=== PATIENT | male | born 1945 | race Caucasian/White ===

== ENCOUNTER 2016-05-24 13:22 | Emergency (ER) | payer OTHER ==
[2016-05-24] MEDS ORDERED: NITROSTAT SL PRN (13:31)
[2016-05-24 13:36] VITALS: BP 163/90; BMI 26.3
[2016-05-24] MEDS ORDERED: ASPIRIN ONE (13:38)
[2016-05-24 13:55] LABS: BASOPHILS # (AUTO) 0.1 X10^3/uL (0.0-0.1); BASOPHILS % (AUTO) 0.7 % (0.2-1.0); EOSINOPHILS # (AUTO) 0.2 x10^3/uL (0.0-0.2); EOSINOPHILS % (AUTO) 2.3 % (0.9-2.9); HEMATOCRIT 43.8 % (42.0-54.0); HEMOGLOBIN 14.8 g/dL (13.5-18.0); LYMPHOCYTES # (AUTO) 2.2 X10^3/uL (1.3-2.9); LYMPHOCYTES % (AUTO) 22.3 % (21.0-51.0); MEAN CORPUSCULAR HEMOGLOBIN 31.5 pg (27.0-34.0); MEAN CORPUSCULAR HGB CONC 33.8 g/dL (33.0-35.0); MEAN CORPUSCULAR VOLUME 93.1 fL (80.0-100.0); MEAN PLATELET VOLUME 9.7 fL (7.4-11.0); MONOCYTES # (AUTO) 0.8 x10^3/uL (0.3-0.8); MONOCYTES % (AUTO) 7.7 % (0.0-13.0); NEUTROPHILS # (AUTO) 6.7 x10^3/uL (2.2-4.8); PLATELET COUNT 227 X10^3/uL (150.0-450.0); RED BLOOD COUNT 4.71 X10^6/uL (4.7-6.0)
[2016-05-24] MEDS ORDERED: ASPIRIN PO SCH (14:00)
[2016-05-24 14:23] LABS: ALANINE AMINOTRANSFERASE 33 Units/L (12-78); ALKALINE PHOSPHATASE 83 Units/L (46-116); ASPARTATE AMINO TRANSFERASE 29 Units/L (15-37); BLOOD UREA NITROGEN 23 mg/dL (7-18); CALCIUM 8.9 mg/dL (8.5-10.1); CARBON DIOXIDE 27.5 mmol/L (21-32); CHLORIDE 106 mmol/L (98-107); CKMB % 3.4 % (<4); COR CA(FOR HYPOALB) 9.7 mg/dL (8.5-10.1); COR NA(FOR HYPERGLY) 142 mmol/L (136-145); CREATINE KINASE 80 Units/L (39-308); CREATINE KINASE MB 2.7 ng/mL (0-4.0); CREATININE 1.35 mg/dL (0.70-1.30); GLUCOSE 203 mg/dL (65-99); MAGNESIUM 1.5 mg/dL (1.7-2.9); PHOSPHORUS 3.8 mg/dL (2.6-4.7); SODIUM 140 mmol/L (136-145); TOTAL PROTEIN 7.3 g/dL (6.4-8.2); TROPONIN I 3.22 ng/mL (0-1.5); eGFR BLACK RACES > 60 (>60); eGFR NON BLACK RACES 56 (>60)
[2016-05-24] MEDS ORDERED: HEPARIN SODIUM IN D5W 25,000 UNITS/500 ML BAG IV PRN (14:35)
[2016-05-24] MEDS ORDERED: HEPARIN SODIUM IN D5W 25,000 UNITS/500 ML BAG IV ONE (14:41)
[2016-05-24] MEDS ORDERED: HEPARIN SODIUM INJ 5000 UNITS ONE (14:41)
--- NOTE | 2016-05-24 14:44 | DR.GENAD ---
HPI - PCP Primary Care Physician: RITO - Complaint/Symptoms Chief Complaint Doctors Comments: Patient admits to having shortness of breath earlier today reclieved x 3 NTG. Hd admits to stents x 3 in the past. He denies diaphoresis but did have some di Chief Complaint:: PT C/O SOB. PT STATES IT STARTED EARLIER TODAY. PT HAS TAKEN X 3 NITRO'S. PT STATES HE RECENTLY HAD A STRESS TEST DONE AND HAS BEEN WAITING TO HEAR BACK FROM HIS [employer] FOR STENT PLACEMENT. - Source History Provided: Patient - Mode of Arrival Mode of Arrival: Wheelchair - Timing Onset of Chief Complaint: 05/24/16 PMH - PMH Past Medical History: Yes Past Medical History: Diabetes, Dyslipidemia, Hypertension, [place] Past Surgical History: Yes Surgical History: CABG/Valve Surgery - Family History History of Family Medical Conditions: No - Social History Does patient currently use any type of tobacco product: Yes Have you used tobacco products in the last 12 months: Yes Type of Tobacco Use: Cigarettes Does any household member use tobacco: Yes Alcohol Use: None Do you use any recreational Drugs:: No Lives With: Alone Lives Where: Home - infectious screening In the last 2 months have you had wt loss of >10#?: NO Have you had fever, night sweats or hemotysis?: No Have you traveled outside the country in the last 6 months?: No Isolation: Standard PE - Vital Signs Vitals: Temperature 97.6 F Pulse Rate 99 Respiratory Rate 24 Blood Pressure 163/90 O2 Sat by Pulse Oximetry 90 Course - Treatment Treatment: Heparin Drip, patient had runs of V tach - Reevaluation 1st: Improved ROR - Labs Reviewed Result Diagrams: 05/24/16 13:41 05/24/16 13:41 Laboratory: WBC 10.0 X10^3/uL (3.6-10.0) 05/24/16 13:41 RBC 4.71 X10^6/uL (4.7-6.0) 05/24/16 13:41 Hgb 14.8 g/dL (13.5-18.0) 05/24/16 13:41 Hct 43.8 % (42.0-54.0) 05/24/16 13:41 MCV 93.1 fL (80.0-100.0) 05/24/16 13:41 MCH 31.5 pg (27.0-34.0) 05/24/16 13:41 MCHC 33.8 g/dL (33.0-35.0) 05/24/16 13:41 RDW 13.0 % (11.6-16.5) 05/24/16 13:41 Plt Count 227 X10^3/uL (150.0-450.0) 05/24/16 13:41 MPV 9.7 fL (7.4-11.0) 05/24/16 13:41 Neut % 67.0 % (42.0-75.0) 05/24/16 13:41 Lymph % 22.3 % (21.0-51.0) 05/24/16 13:41 [place] % 7.7 % (0.0-13.0) 05/24/16 13:41 Eos % 2.3 % (0.9-2.9) 05/24/16 13:41 Baso % 0.7 % (0.2-1.0) 05/24/16 13:41 Neut # 6.7 x10^3/uL (2.2-4.8) H 05/24/16 13:41 Lymph # 2.2 X10^3/uL (1.3-2.9) 05/24/16 13:41 [place] # 0.8 x10^3/uL (0.3-0.8) 05/24/16 13:41 Eos # 0.2 x10^3/uL (0.0-0.2) 05/24/16 13:41 Baso # 0.1 X10^3/uL (0.0-0.1) 05/24/16 13:41 Absolute Nucleated RBC 0.0 /100WBC 05/24/16 13:41 INR Target Range - 05/24/16 13:41 INR 1.04 (0.8-1.3) 05/24/16 13:41 PTT 29.5 SECONDS (22.9-36.5) 05/24/16 13:41 PTT Comment - 05/24/16 13:41 Sodium 140 mmol/L (136-145) 05/24/16 13:41 Corrected Sodium 142 mmol/L (136-145) 05/24/16 13:41 Potassium 5.1 mmol/L (3.5-5.1) 05/24/16 13:41 Chloride 106 mmol/L (98-107) 05/24/16 13:41 Carbon Dioxide 27.5 mmol/L (21-32) 05/24/16 13:41 BUN 23 mg/dL (7-18) H 05/24/16 13:41 Creatinine 1.35 mg/dL (0.70-1.30) H 05/24/16 13:41 Est GFR (MDRD) Af Amer > 60 (>60) 05/24/16 13:41 Est GFR (MDRD) Non-Af 56 (>60) L 05/24/16 13:41 Glucose 203 mg/dL (65-99) H 05/24/16 13:41 Calcium 8.9 mg/dL (8.5-10.1) 05/24/16 13:41 Corrected Calcium 9.7 mg/dL (8.5-10.1) 05/24/16 13:41 Phosphorus 3.8 mg/dL (2.6-4.7) 05/24/16 13:41 Magnesium 1.5 mg/dL (1.7-2.9) L 05/24/16 13:41 Total Bilirubin 0.50 mg/dL (0.2-1.0) 05/24/16 13:41 AST 29 Units/L (15-37) 05/24/16 13:41 ALT 33 Units/L (12-78) 05/24/16 13:41 Alkaline Phosphatase 83 Units/L (46-116) 05/24/16 13:41 Creatine Kinase 80 Units/L (39-308) 05/24/16 13:41 CK-MB (CK-2) 2.7 ng/mL (0-4.0) 05/24/16 13:41 CK/CKMB % Calc 3.4 % (<4) 05/24/16 13:41 Troponin I 3.22 ng/mL (0-1.5) H* 05/24/16 13:41 Total Protein 7.3 g/dL (6.4-8.2) 05/24/16 13:41 Albumin 3.0 g/dL (3.4-5.0) L 05/24/16 13:41 Globulin 4.3 g/dL (2.5-4.5) 05/24/16 13:41 Albumin/Globulin Ratio 0.7 Ratio (1.1-2.1) L 05/24/16 13:41 - XRAY XRAY Interpreted by: Radiologist (The cardiac silhouette appears borderline enlarged. The cardiac silhouette size may be accentuated by the AP projection. There are new hazy confluent opacities present in the right mid lung zone and at the lung bases bilaterally, which could be due to atelectasis, pneumonia or keiry.) - EKG Compared to prior EKG Dated: 05/24/16 (Talked to Dr Scruggs at [facility] who accepted patient for further evaluation and treatment) - Diagnosis Discharge Problem: Non-STEMI (non-ST elevated myocardial infarction) - Discharge Plan Condition: Stable - Follow ups/Referrals Follow ups/Referrals: JESSICA SOW [Primary Care Provider] - 3 days - Instructions
--- NOTE | 2016-05-24 14:49 | RAD ---
Examination: Chest x-ray. Clinical history: Chest pain, shortness of breath. Technique: A single portable AP view of the chest was obtained. Comparison: 04/17/2016. Findings: There are multiple sternal wires and surgical clips in the mediastinum indicating a prior CABG. Catrina tor leads are seen overlying the chest. The cardiac silhouette appears borderline enlarged. The cardiac silhouette size may be accentuated b y the AP projection. The thoracic aorta is calcified. No pneumothorax or pleural effusion is noted. There are new hazy confluent opacities present in the right mid lung zone and at the lung bases bila terally, which could be due to atelectasis, pneumonia or edema. Degenerative changes are noted in the spine. No acute osseous abnormality is noted. Impression: 1. The cardiac silhouette appears borderline enlarged. The cardiac silhouette size may be accentuate d by the AP projection. 2. There are new hazy confluent opacities present in the right mid lung zone and at the lung bases b ilaterally, which could be due to atelectasis, pneumonia or edema. Reported By:
[2016-05-24] MEDS ORDERED: HEPARIN SODIUM INJ 5000 UNITS IVP ONE (14:53)
== END 2016-05-24 15:30 | disposition short-term general hospital (02) ==
LOC: ER 13:22
DX: I22.2 Subsequent non-ST elevation (NSTEMI) myocardial infarction (principal); R06.02 Shortness of breath
CPT/HCPCS: 36415; 71010; 80053; 82550; 82553; 83735; 84100; 84484; 85025; 85610; 85730; 93005; 93010; 96365; 96374; 96375; 99284; 99285; A4222; J1644

== ENCOUNTER 2016-06-13 16:52 | Emergency (ER) | payer OTHER ==
[2016-06-13 17:01] VITALS: BP 153/95; BMI 25.8
--- NOTE | 2016-06-13 17:18 | DR.GENAD ---
HPI - PCP Primary Care Physician: BRII LOCKHART - Complaint/Symptoms Chief Complaint Doctors Comments: History as stated Lifting something heavy and DFIB went off. Patient has been advised to decrease his physician activity during this trial period of DFIB vest. Chief Complaint:: DEFIB VEST WENT OFF AT HOME. PT DID NOT FEEL IT. WAS LIFTING SOMETHING HEAVY WHEN THIS HAPPENED Self Treatment fo Chief Complaint: NONE - Source History Provided: Patient, Family Member - Mode of Arrival Mode of Arrival: Wheelchair - Timing Onset of Chief Complaint: 06/13/16 PMH - PMH Past Medical History: Yes Past Medical History: Coronary Artery Disease, [place], Ventricular Tachycardia Past Surgical History: Yes Surgical History: CABG/Valve Surgery - Family History History of Family Medical Conditions: Yes Family Medical History: Diabetes Mellitus, Cancer, Coronary Artery Disease, Hypertension - Social History Have you used tobacco products in the last 12 months: Yes Type of Tobacco Use: Cigarettes Alcohol Use: None Do you use any recreational Drugs:: No Lives With: Alone Lives Where: Home - infectious screening In the last 2 months have you had wt loss of >10#?: NO Have you had fever, night sweats or hemotysis?: No Have you traveled outside the country in the last 6 months?: No Isolation: Standard ROS - Review of Systems Constitutional: No Symptoms Reported Eyes: No Symptoms Reported ENTM: No Symptoms Reported Respiratoy: No Symptoms Reported Cardiovascular: No Symptoms Reported Gastrointestinal/Abdominal: No Symptoms Reported, See HPI Genitourinary: No Symptoms Reported Neurological: No Symptoms Reported Musculoskeletal: No Symptoms Reported Integumentary: No Symptoms Reported Hematologic/Lymphatic: No Symptoms Reported Endocrine: No Symptoms Reported Psychiatric: No Symptoms Reported All Other Systems: Reviewed and Negative PE - Vital Signs Vitals: Temperature 98.0 F Pulse Rate 94 Respiratory Rate 18 Blood Pressure 153/95 O2 Sat by Pulse Oximetry 98 - General Limitations: No Limitations General Appearance: Alert, In No Apparent Distress - Head Head Exam: Normal Inspection, Atraumatic - Eyes Eye exam: Normal Appearance, PERRL, EOMI - ENT ENT Exam: Normal Exam External Ear Exam: Normal External Inspection TM/Canal Exam: Bilateral Normal Nose Exam: Normal Nose Exam Mouth Exam: Normal Inspection Throat Exam: Normal Inspection - Neck Neck Exam: Normal Inspection, Full ROM - Chest Chest Inspection: Normal Inspection - Respiratory Respiratory Exam: Normal Lung Sounds Bilat Respiratory Exam: Bilateral Clear to Auscultation - Cardiovascular Cardiovascular Exam: Regular Rate, Normal Rhythm - Abdominal Exam Abdominal Exam: Normal Inspection Abdominal Tenderness: negative: RUQ, RLQ, LUQ, LLQ, Epigastrium, Suprapubic, Diffuse, Mild, Moderate, Severe, Other - Extremities Extremities Exam: Normal Inspection, Full ROM - Back Back Exam: Normal Inspection, Full ROM - Neurologic Neurological Exam: Alert, Oriented X3, CN II-XII Intact - Psychiatric Psychiatric Exam: Normal Affect, Normal Mood - Skin Skin Exam: Warm, Dry, Intact Course - Reevaluation 1st: Unchanged ROR - Labs Reviewed Result Diagrams: 06/13/16 17:15 06/13/16 17:15 Laboratory: WBC 7.9 X10^3/uL (3.6-10.0) 06/13/16 17:15 RBC 4.27 X10^6/uL (4.7-6.0) L 06/13/16 17:15 Hgb 13.4 g/dL (13.5-18.0) L 06/13/16 17:15 Hct 39.5 % (42.0-54.0) L 06/13/16 17:15 MCV 92.4 fL (80.0-100.0) 06/13/16 17:15 MCH 31.4 pg (27.0-34.0) 06/13/16 17:15 MCHC 34.0 g/dL (33.0-35.0) 06/13/16 17:15 RDW 13.4 % (11.6-16.5) 06/13/16 17:15 Plt Count 200 X10^3/uL (150.0-450.0) 06/13/16 17:15 MPV 9.3 fL (7.4-11.0) 06/13/16 17:15 Neut % 49.3 % (42.0-75.0) 06/13/16 17:15 Lymph % 37.0 % (21.0-51.0) 06/13/16 17:15 [place] % 8.2 % (0.0-13.0) 06/13/16 17:15 Eos % 4.6 % (0.9-2.9) H 06/13/16 17:15 Baso % 0.9 % (0.2-1.0) 06/13/16 17:15 Neut # 3.9 x10^3/uL (2.2-4.8) 06/13/16 17:15 Lymph # 2.9 X10^3/uL (1.3-2.9) 06/13/16 17:15 [place] # 0.6 x10^3/uL (0.3-0.8) 06/13/16 17:15 Eos # 0.4 x10^3/uL (0.0-0.2) H 06/13/16 17:15 Baso # 0.1 X10^3/uL (0.0-0.1) 06/13/16 17:15 Absolute Nucleated RBC 0.0 /100WBC 06/13/16 17:15 Sodium 141 mmol/L (136-145) 06/13/16 17:15 Corrected Sodium 144 mmol/L (136-145) 06/13/16 17:15 Potassium 4.9 mmol/L (3.5-5.1) 06/13/16 17:15 Chloride 105 mmol/L (98-107) 06/13/16 17:15 Carbon Dioxide 28.5 mmol/L (21-32) 06/13/16 17:15 BUN 18 mg/dL (7-18) 06/13/16 17:15 Creatinine 1.30 mg/dL (0.70-1.30) 06/13/16 17:15 Est GFR (MDRD) Af Amer > 60 (>60) 06/13/16 17:15 Est GFR (MDRD) Non-Af 58 (>60) L 06/13/16 17:15 Glucose 213 mg/dL (65-99) H 06/13/16 17:15 Calcium 9.2 mg/dL (8.5-10.1) 06/13/16 17:15 Corrected Calcium TNP 06/13/16 17:15 Phosphorus 3.2 mg/dL (2.6-4.7) 06/13/16 17:15 Magnesium 1.6 mg/dL (1.7-2.9) L 06/13/16 17:15 Total Bilirubin 0.30 mg/dL (0.2-1.0) 06/13/16 17:15 AST 14 Units/L (15-37) L 06/13/16 17:15 ALT 19 Units/L (12-78) 06/13/16 17:15 Alkaline Phosphatase 80 Units/L (46-116) 06/13/16 17:15 Creatine Kinase 45 Units/L (39-308) 06/13/16 17:15 CK-MB (CK-2) 1.6 ng/mL (0-4.0) 06/13/16 17:15 CK/CKMB % Calc 3.6 % (<4) 06/13/16 17:15 Troponin I 0.07 ng/mL (0-1.5) 06/13/16 17:15 Total Protein 7.5 g/dL (6.4-8.2) 06/13/16 17:15 Albumin 3.7 g/dL (3.4-5.0) 06/13/16 17:15 Globulin 3.8 g/dL (2.5-4.5) 06/13/16 17:15 Albumin/Globulin Ratio 1.0 Ratio (1.1-2.1) L 06/13/16 17:15 - XRAY XRAY Interpreted by: Radiologist (No acute cardiopulmonary disease) - Diagnosis Discharge Problem: Defibrillator discharge - Discharge Plan Condition: Stable - Follow ups/Referrals Follow ups/Referrals: JESSICA SOW [Primary Care Provider] - 3 days - Instructions
[2016-06-13 17:28] LABS: BASOPHILS # (AUTO) 0.1 X10^3/uL (0.0-0.1); BASOPHILS % (AUTO) 0.9 % (0.2-1.0); EOSINOPHILS # (AUTO) 0.4 x10^3/uL (0.0-0.2); EOSINOPHILS % (AUTO) 4.6 % (0.9-2.9); HEMATOCRIT 39.5 % (42.0-54.0); HEMOGLOBIN 13.4 g/dL (13.5-18.0); LYMPHOCYTES # (AUTO) 2.9 X10^3/uL (1.3-2.9); MEAN CORPUSCULAR HEMOGLOBIN 31.4 pg (27.0-34.0); MEAN CORPUSCULAR VOLUME 92.4 fL (80.0-100.0); MEAN PLATELET VOLUME 9.3 fL (7.4-11.0); MONOCYTES # (AUTO) 0.6 x10^3/uL (0.3-0.8); MONOCYTES % (AUTO) 8.2 % (0.0-13.0); NEUTROPHILS # (AUTO) 3.9 x10^3/uL (2.2-4.8); NEUTROPHILS % (AUTO) 49.3 % (42.0-75.0); PLATELET COUNT 200 X10^3/uL (150.0-450.0); RED BLOOD COUNT 4.27 X10^6/uL (4.7-6.0); RED CELL DISTRIBUTION WIDTH 13.4 % (11.6-16.5); WHITE BLOOD COUNT 7.9 X10^3/uL (3.6-10.0)
[2016-06-13 17:50] LABS: BLOOD UREA NITROGEN 18 mg/dL (7-18); CALCIUM 9.2 mg/dL (8.5-10.1); CARBON DIOXIDE 28.5 mmol/L (21-32); CHLORIDE 105 mmol/L (98-107); COR NA(FOR HYPERGLY) 144 mmol/L (136-145); GLUCOSE 213 mg/dL (65-99); SODIUM 141 mmol/L (136-145); TROPONIN I 0.07 ng/mL (0-1.5); eGFR BLACK RACES > 60 (>60); eGFR NON BLACK RACES 58 (>60)
[2016-06-13 17:55] LABS: ALANINE AMINOTRANSFERASE 19 Units/L (12-78); ALBUMIN 3.7 g/dL (3.4-5.0); ALKALINE PHOSPHATASE 80 Units/L (46-116); ASPARTATE AMINO TRANSFERASE 14 Units/L (15-37); CKMB % 3.6 % (<4); CREATINE KINASE 45 Units/L (39-308); CREATINE KINASE MB 1.6 ng/mL (0-4.0); MAGNESIUM 1.6 mg/dL (1.7-2.9); PHOSPHORUS 3.2 mg/dL (2.6-4.7); TOTAL PROTEIN 7.5 g/dL (6.4-8.2)
--- NOTE | 2016-06-13 17:56 | RAD ---
HISTORY: Defibrillator went off Study: Portable chest Comparison: May 24, 2016 Findings: The trachea is midline. The cardiac silhouette is normal status post old coronary artery bypass gra fting surgery.. The lungs are clear without focal infiltrate or effusion. The bony thorax is unrem arkable. IMPRESSION: 1. No acute cardiopulmonary disease. Reported By:
[2016-06-13] MEDS ORDERED: NS 1000 ML 1,000 ML IV SCH (18:00)
== END 2016-06-13 18:35 | disposition home or self-care (01) ==
LOC: ER 17:21
DX: Z95.810 Presence of automatic (implantable) cardiac defibrillator (principal)
CPT/HCPCS: 36415; 71010; 80053; 82550; 82553; 83735; 84100; 84484; 85025; 93005; 99283

== ENCOUNTER → 2017-02-10 | Outpatient (CLI) | payer OTHER ==
[2017-02-10 07:31] LABS: BASOPHILS # (AUTO) 0.1 X10^3/uL (0.0-0.1); BASOPHILS % (AUTO) 0.8 % (0.2-1.0); EOSINOPHILS # (AUTO) 0.3 x10^3/uL (0.0-0.2); EOSINOPHILS % (AUTO) 3.8 % (0.9-2.9); HEMATOCRIT 44.2 % (42.0-54.0); HEMOGLOBIN 15.3 g/dL (13.5-18.0); LYMPHOCYTES # (AUTO) 2.2 X10^3/uL (1.3-2.9); MEAN CORPUSCULAR HEMOGLOBIN 32.9 pg (27.0-34.0); MEAN CORPUSCULAR HGB CONC 34.7 g/dL (33.0-35.0); MEAN CORPUSCULAR VOLUME 94.7 fL (80.0-100.0); MEAN PLATELET VOLUME 8.8 fL (7.4-11.0); MONOCYTES # (AUTO) 0.7 x10^3/uL (0.3-0.8); MONOCYTES % (AUTO) 9.1 % (0.0-13.0); NEUTROPHILS # (AUTO) 4.8 x10^3/uL (2.2-4.8); NEUTROPHILS % (AUTO) 59.3 % (42.0-75.0); PLATELET COUNT 196 X10^3/uL (150.0-450.0); RED BLOOD COUNT 4.67 X10^6/uL (4.7-6.0); RED CELL DISTRIBUTION WIDTH 13.1 % (11.6-16.5); WHITE BLOOD COUNT 8.1 X10^3/uL (3.6-10.0)
[2017-02-10 07:53] LABS: ALANINE AMINOTRANSFERASE 18 Units/L (12-78); ALBUMIN 3.8 g/dL (3.4-5.0); ALKALINE PHOSPHATASE 77 Units/L (46-116); ASPARTATE AMINO TRANSFERASE 14 Units/L (15-37); BLOOD UREA NITROGEN 15 mg/dL (7-18); CALCIUM 8.7 mg/dL (8.5-10.1); CHLORIDE 105 mmol/L (98-107); CHOL/HDL RATIO 3.5 (0.0-5.0); CHOLESTEROL 142 mg/dL (0-200); COR NA(FOR HYPERGLY) 142 mmol/L (136-145); HDL CHOLESTEROL 41 mg/dL (40-60); SODIUM 140 mmol/L (136-145); TOTAL PROTEIN 7.4 g/dL (6.4-8.2); TRIGLYCERIDES 83 mg/dL (0-150); eGFR BLACK RACES > 60 (>60); eGFR NON BLACK RACES > 60 (>60)
[2017-02-10 10:43] LABS: TOTAL PSA 0.72 ng/mL (0.13-4.0)
[2017-02-10 10:46] LABS: HEMOGLOBIN A1C 8.2 % (4.5-6.2)
== END ==
LOC: LAB 07:05
PROVIDERS: ATTEND Internal Medicine Clinical Cardiac Electrophysiology
DX: I25.5 Ischemic cardiomyopathy (principal); I10 Essential (primary) hypertension; R35.8 Other polyuria; E11.8 Type 2 diabetes mellitus with unspecified complications
CPT/HCPCS: 36415; 80048; 80061; 80076; 83036; 84153; 85025

== ENCOUNTER → 2017-05-14 | Outpatient (CLI) | payer OTHER ==
[2017-05-14 07:48] LABS: BASOPHILS # (AUTO) 0.1 X10^3/uL (0.0-0.1); BASOPHILS % (AUTO) 0.8 % (0.2-1.0); EOSINOPHILS # (AUTO) 0.3 x10^3/uL (0.0-0.2); EOSINOPHILS % (AUTO) 3.6 % (0.9-2.9); HEMOGLOBIN 15.5 g/dL (13.5-18.0); LYMPHOCYTES # (AUTO) 2.2 X10^3/uL (1.3-2.9); LYMPHOCYTES % (AUTO) 29.9 % (21.0-51.0); MEAN CORPUSCULAR HEMOGLOBIN 32.5 pg (27.0-34.0); MEAN CORPUSCULAR HGB CONC 34.6 g/dL (33.0-35.0); MEAN CORPUSCULAR VOLUME 94.1 fL (80.0-100.0); MEAN PLATELET VOLUME 9.5 fL (7.4-11.0); MONOCYTES # (AUTO) 0.7 x10^3/uL (0.3-0.8); NEUTROPHILS # (AUTO) 4.2 x10^3/uL (2.2-4.8); NEUTROPHILS % (AUTO) 56.7 % (42.0-75.0); PLATELET COUNT 188 X10^3/uL (150.0-450.0); RED BLOOD COUNT 4.78 X10^6/uL (4.7-6.0); RED CELL DISTRIBUTION WIDTH 13.3 % (11.6-16.5); WHITE BLOOD COUNT 7.4 X10^3/uL (3.6-10.0)
[2017-05-14 07:55] LABS: HEMOGLOBIN A1C 7.7 %
[2017-05-14 07:56] LABS: ALANINE AMINOTRANSFERASE 20 Units/L (12-78); ALKALINE PHOSPHATASE 88 Units/L (46-116); ASPARTATE AMINO TRANSFERASE 20 Units/L (15-37); BLOOD UREA NITROGEN 18 mg/dL (7-18); CALCIUM 8.8 mg/dL (8.5-10.1); CARBON DIOXIDE 27.4 mmol/L (21-32); CHLORIDE 104 mmol/L (98-107); CHOL/HDL RATIO 3.7 (0.0-5.0); CHOLESTEROL 158 mg/dL (0-200); COR NA(FOR HYPERGLY) 142 mmol/L (136-145); CREATININE 1.27 mg/dL (0.70-1.30); HDL CHOLESTEROL 43 mg/dL (40-60); SODIUM 141 mmol/L (136-145); TOTAL PROTEIN 7.7 g/dL (6.4-8.2); TRIGLYCERIDES 79 mg/dL (0-150); eGFR BLACK RACES > 60 (>60); eGFR NON BLACK RACES 60 (>60)
[2017-05-14 08:17] LABS: TOTAL PSA 1.15 ng/mL (0.13-4.0)
[2017-05-14 08:26] LABS: CREATININE,URINE 100.24 mg/dL (40-278); MICROALBUMIN,URINE 84.3 mg/L
== END ==
LOC: LAB 06:59
PROVIDERS: ATTEND Nurse Practitioner Family
DX: I10 Essential (primary) hypertension (principal); R35.8 Other polyuria; E78.4 Other hyperlipidemia; E11.65 Type 2 diabetes mellitus with hyperglycemia; R39.12 Poor urinary stream
CPT/HCPCS: 36415; 80053; 80061; 82043; 83036; 84153; 85025

== ENCOUNTER 2021-02-18 14:08 | Observation (INO) ==
[2021-02-18] MEDS ORDERED: NS 1,000 ML IV 1,000 ML ONE ×2 (14:23→18:07)
[2021-02-18] MEDS ORDERED: ZOFRAN INJ 4 MG VIAL ONE ×2 (14:23→17:11)
--- NOTE | 2021-02-18 14:24 | DR.GENAD ---
HPI Time Seen Time Seen by Provider: 02/18/21 14:24 PCP Primary Care Physician: [facility] Complaint/Symptoms Chief Complaint:: PT REPORTS THAT HAS HAD A < APPETTITE FOR WEEKS , BR PTS FAMILY REPORTS HIM EATING A SMALL BREAKFAST THAN NOTHING ELSE ,BR PT REPORTS A SMALL AMOUNT OF ABD PAIN , AND PT STATES " HE DOES NOT HAVE AN APPETITE,BR PT HAS BEEN HAVING N/V ONCE EVERY 3 -4 DAYS ,,BR Self Treatment fo Chief Complaint: NONE - COVID-19 Coronavirus risk:travel/contact w/high risk person: No Has patient experienced Coronavirus symptoms: No Source History Provided: Patient and Family Member Mode of Arrival Mode of Arrival: Wheelchair Timing Onset of Chief Complaint: 01/22/21 PMH PMH Past Medical History: Yes Past Medical History: Diabetes, Dyslipidemia, Hypertension and [place] Past Surgical History: Yes Surgical History: Abdominal Surgery, Angioplasty/Stents and CABG/Valve Surgery Family History History of Family Medical Conditions: Yes Family Medical History: Diabetes Mellitus and Hypertension Social History Does patient currently use any type of tobacco product: No Have you used tobacco products in the last 12 months: No Type of Tobacco Use: None Does any household member use tobacco: No Alcohol Use: None Do you use any recreational Drugs:: No Lives With: Family Lives Where: Home Travel Risk Coronavirus risk:travel/contact w/high risk person: No Has patient experienced Coronavirus symptoms: No Infectious screening In the last 2 months have you had wt loss of >10#?: NO Have you had fever, night sweats or hemotysis?: No Have you traveled outside the country in the last 6 months?: No Isolation: Standard PE Vital Signs Vitals: Pulse Rate 92 Respiratory Rate 23 Blood Pressure [Left Arm] 140/70 Blood Pressure 189/91 O2 Sat by Pulse Oximetry 100 ROR Labs Reviewed Result Diagrams: 02/18/21 14:30 02/18/21 14:30 Laboratory: WBC 10.4 X10^3/uL (3.6-10.0) H 02/18/21 14:30 RBC 3.80 X10^6/uL (4.7-6.0) L 02/18/21 14:30 Hgb 12.1 g/dL (13.5-18.0) L 02/18/21 14:30 Hct 35.3 % (42.0-54.0) L 02/18/21 14:30 MCV 92.9 fL (80.0-100.0) 02/18/21 14:30 MCH 31.8 pg (27.0-34.0) 02/18/21 14:30 MCHC 34.3 g/dL (33.0-35.0) 02/18/21 14:30 RDW 13.3 % (11.6-16.5) 02/18/21 14:30 Plt Count 400 X10^3/uL (150.0-450.0) 02/18/21 14:30 MPV 8.3 fL (7.4-11.0) 02/18/21 14:30 Neut % (Auto) 66.1 % (42.0-75.0) 02/18/21 14:30 Lymph % (Auto) 21.5 % (21.0-51.0) 02/18/21 14:30 [place] % (Auto) 9.9 % (0.0-13.0) 02/18/21 14:30 Eos % (Auto) 1.9 % (0.9-2.9) 02/18/21 14:30 Baso % (Auto) 0.6 % (0.2-1.0) 02/18/21 14:30 Neut # (Auto) 6.9 x10^3/uL (2.2-4.8) H 02/18/21 14:30 Lymph # (Auto) 2.2 X10^3/uL (1.3-2.9) 02/18/21 14:30 [place] # (Auto) 1.0 x10^3/uL (0.3-0.8) H 02/18/21 14:30 Eos # (Auto) 0.2 x10^3/uL (0.0-0.2) 02/18/21 14:30 Baso # (Auto) 0.1 X10^3/uL (0.0-0.1) 02/18/21 14:30 Absolute Nucleated RBC 0.1 /100WBC 02/18/21 14:30 Sodium 138 mmol/L (136-145) 02/18/21 14:30 Corrected Sodium 143 mmol/L (136-145) 02/18/21 14:30 Potassium 4.3 mmol/L (3.5-5.1) 02/18/21 14:30 Chloride 99 mmol/L (98-107) 02/18/21 14:30 Carbon Dioxide 31.7 mmol/L (21-32) 02/18/21 14:30 BUN 19 mg/dL (7-18) H 02/18/21 14:30 Creatinine 1.41 mg/dL (0.70-1.30) H 02/18/21 14:30 Est GFR (MDRD) Af Amer > 60 (>60) 02/18/21 14:30 Est GFR (MDRD) Non-Af 52 (>60) L 02/18/21 14:30 Glucose 302 mg/dL (65-99) H 02/18/21 14:30 Calcium 9.1 mg/dL (8.5-10.1) 02/18/21 14:30 Corrected Calcium 9.7 mg/dL (8.5-10.1) 02/18/21 14:30 Total Bilirubin 0.30 mg/dL (0.2-1.0) 02/18/21 14:30 AST 15 Units/L (15-37) 02/18/21 14:30 ALT 17 Units/L (12-78) 02/18/21 14:30 Alkaline Phosphatase 95 Units/L (46-116) 02/18/21 14:30 Creatine Kinase 24 Units/L (39-308) L 02/18/21 14:30 CK-MB (CK-2) < 1.0 ng/mL (0-4.0) 02/18/21 14:30 CK/CKMB % Calc 4.2 % (<4) 02/18/21 14:30 Troponin I < 0.02 ng/mL (0-1.5) 02/18/21 14:30 Total Protein 7.5 g/dL (6.4-8.2) 02/18/21 14:30 Albumin 3.2 g/dL (3.4-5.0) L 02/18/21 14:30 Globulin 4.3 g/dL (2.5-4.5) 02/18/21 14:30 Albumin/Globulin Ratio 0.7 Ratio (1.1-2.1) L 02/18/21 14:30 Amylase 78 Units/L (25-115) 02/18/21 14:30 Lipase 376 Units/L (73-393) 02/18/21 14:30 SARS CoV-2 RNA Rapid PAIGE Negative (NEGATIVE) 02/18/21 16:40 Opioid Opioid Risk Tool Age (Markos box if 16-45): No History of Preadolescent Sexual Abuse: No Total: 0 Total Score Risk Category: Low Risk Copyright: Garry LINARES predicting aberrant behaviors
[2021-02-18] MEDS ORDERED: ZOFRAN INJ 4 MG VIAL IVP ONE ×2 (14:34→17:16)
[2021-02-18] MEDS ORDERED: NS 1,000 ML IV 1,000 ML IV ONE (14:34)
[2021-02-18 15:02] LABS: BASOPHILS # (AUTO) 0.1 X10^3/uL (0.0-0.1); BASOPHILS % (AUTO) 0.6 % (0.2-1.0); EOSINOPHILS # (AUTO) 0.2 x10^3/uL (0.0-0.2); EOSINOPHILS % (AUTO) 1.9 % (0.9-2.9); HEMATOCRIT 35.3 % (42.0-54.0); HEMOGLOBIN 12.1 g/dL (13.5-18.0); LYMPHOCYTES # (AUTO) 2.2 X10^3/uL (1.3-2.9); LYMPHOCYTES % (AUTO) 21.5 % (21.0-51.0); MEAN CORPUSCULAR HEMOGLOBIN 31.8 pg (27.0-34.0); MEAN CORPUSCULAR HGB CONC 34.3 g/dL (33.0-35.0); MEAN CORPUSCULAR VOLUME 92.9 fL (80.0-100.0); MEAN PLATELET VOLUME 8.3 fL (7.4-11.0); MONOCYTES % (AUTO) 9.9 % (0.0-13.0); NEUTROPHILS # (AUTO) 6.9 x10^3/uL (2.2-4.8); NEUTROPHILS % (AUTO) 66.1 % (42.0-75.0); PLATELET COUNT 400 X10^3/uL (150.0-450.0); RED CELL DISTRIBUTION WIDTH 13.3 % (11.6-16.5); WHITE BLOOD COUNT 10.4 X10^3/uL (3.6-10.0)
[2021-02-18 15:17] LABS: ALANINE AMINOTRANSFERASE 17 Units/L (12-78); ALBUMIN 3.2 g/dL (3.4-5.0); ALKALINE PHOSPHATASE 95 Units/L (46-116); ASPARTATE AMINO TRANSFERASE 15 Units/L (15-37); BLOOD UREA NITROGEN 19 mg/dL (7-18); CALCIUM 9.1 mg/dL (8.5-10.1); CARBON DIOXIDE 31.7 mmol/L (21-32); CHLORIDE 99 mmol/L (98-107); CKMB % 4.2 % (<4); COR CA(FOR HYPOALB) 9.7 mg/dL (8.5-10.1); COR NA(FOR HYPERGLY) 143 mmol/L (136-145); CREATINE KINASE 24 Units/L (39-308); CREATINE KINASE MB < 1.0 ng/mL (0-4.0); CREATININE 1.41 mg/dL (0.70-1.30); SODIUM 138 mmol/L (136-145); TOTAL PROTEIN 7.5 g/dL (6.4-8.2); TROPONIN I < 0.02 ng/mL (0-1.5); eGFR NON BLACK RACES 52 (>60)
--- NOTE | 2021-02-18 15:30 | RAD ---
HISTORYABDOMINAL PAIN, VOMITING HTN, AR, DM, DYSLIPIDEMIA SX: ABDOMINAL, ANGIOPLASTY, CABGSTUDYACUTE ABDOMEN SERIESCOMPARISONChest film dated February 12, 2021.FINDINGSThe trachea is midline. The cardiac silhouette is [borderline enlarged but stable. There are sternotomy wires surgical clips and pacemaker in place.]. [The lungs are clear without focal mass or consolidation. There is no effusion or pneumothorax.] [The bony thorax is unremarkable].Flat plate and upright evaluation of the abdomen demonstrates a [normal bowel gas pattern]. No bowel distention or abnormal air collections are observed. An endovascular stent is seen within an abdominal aortic aneurysm. There is no pneumoperitoneum. No pathological soft tissue mass or calcification can be observed. The bony structures are grossly intact.IMPRESSION1. [No acute cardiopulmonary disease.]2. [No evidence for acute abdominal pathology identified.]Electronically signed by: TASHI BRADFORD (Feb 18, 2021 15:28:59)
[2021-02-18 15:38] LABS: AMYLASE 78 Units/L (25-115); LIPASE 376 Units/L (73-393)
[2021-02-18] MEDS ORDERED: NORMODYNE INJ 20 MG VIAL ONE (17:07)
[2021-02-18] MEDS ORDERED: LABETALOL HCL IVP ONE (17:16)
[2021-02-18] MEDS ORDERED: ZOFRAN INJ 4 MG VIAL IVP PRN (18:00)
[2021-02-18] MEDS ORDERED: PEPCID 20 MG IV PREMIX* 20 MG/50 ML BAG IV PRN (18:00)
[2021-02-18] MEDS: NS 1,000 ML IV 1,000 ML IV SCH (18:23)
[2021-02-18 18:42] VITALS: BMI 25.7
[2021-02-18] MEDS: SNACK - Diabetic Appropriate PO SCH (20:42)
[2021-02-18] MEDS: LIPITOR TAB 20 MG PO SCH (21:18)
[2021-02-18] MEDS: ASPIRIN EC 81 MG PO SCH (21:18)
[2021-02-19 03:55] LABS: BASOPHILS # (AUTO) 0.1 X10^3/uL (0.0-0.1); BASOPHILS % (AUTO) 1.2 % (0.2-1.0); EOSINOPHILS # (AUTO) 0.2 x10^3/uL (0.0-0.2); EOSINOPHILS % (AUTO) 2.6 % (0.9-2.9); HEMATOCRIT 29.5 % (42.0-54.0); HEMOGLOBIN 10.4 g/dL (13.5-18.0); LYMPHOCYTES # (AUTO) 2.4 X10^3/uL (1.3-2.9); LYMPHOCYTES % (AUTO) 30.5 % (21.0-51.0); MEAN CORPUSCULAR HEMOGLOBIN 32.5 pg (27.0-34.0); MEAN CORPUSCULAR HGB CONC 35.3 g/dL (33.0-35.0); MEAN CORPUSCULAR VOLUME 91.9 fL (80.0-100.0); MEAN PLATELET VOLUME 7.9 fL (7.4-11.0); MONOCYTES # (AUTO) 0.8 x10^3/uL (0.3-0.8); MONOCYTES % (AUTO) 10.6 % (0.0-13.0); NEUTROPHILS # (AUTO) 4.3 x10^3/uL (2.2-4.8); NEUTROPHILS % (AUTO) 55.1 % (42.0-75.0); PLATELET COUNT 324 X10^3/uL (150.0-450.0); RED BLOOD COUNT 3.22 X10^6/uL (4.7-6.0); RED CELL DISTRIBUTION WIDTH 12.8 % (11.6-16.5); WHITE BLOOD COUNT 7.9 X10^3/uL (3.6-10.0)
[2021-02-19 03:57] LABS: BLOOD UREA NITROGEN 17 mg/dL (7-18); CARBON DIOXIDE 30.4 mmol/L (21-32); CHLORIDE 104 mmol/L (98-107); SODIUM 141 mmol/L (136-145); eGFR NON BLACK RACES > 60 (>60)
[2021-02-19 03:58] LABS: ALANINE AMINOTRANSFERASE 13 Units/L (12-78); ALBUMIN 2.5 g/dL (3.4-5.0); ALKALINE PHOSPHATASE 77 Units/L (46-116); AMYLASE 33 Units/L (25-115); ASPARTATE AMINO TRANSFERASE 10 Units/L (15-37); CALCIUM 8.4 mg/dL (8.5-10.1); COR CA(FOR HYPOALB) 9.6 mg/dL (8.5-10.1); COR NA(FOR HYPERGLY) 142 mmol/L (136-145); LIPASE 94 Units/L (73-393)
[2021-02-19 04:13] LABS: BILIRUBIN,URINE NEGATIVE (NEGATIVE); BLOOD/HEMOGLOBIN,URINE NEGATIVE (NEGATIVE); GLUCOSE, URINE 2+ (NEGATIVE); KETONES,URINE NEGATIVE (NEGATIVE); LEUKOCYTE ESTERASE ,URINE NEGATIVE (NEGATIVE); NITRITES,URINE NEGATIVE (NEGATIVE); PH,URINE 6.5 (5.0 - 8.0); PROTEIN,URINE 1+ (NEGATIVE); UROBILINOGEN,URINE 1+ (NORMAL)
[2021-02-19 04:26] LABS: APPEARANCE,URINE CLEAR (CLEAR); BACTERIA,URINE TRACE /HPF (NEGATIVE); COLOR,URINE YELLOW (YELLOW); RBC,URINE 0-2 /HPF (0-3); SQUAMOUS EPITHELIAL CELL,UR RARE /HPF (NEGATIVE)
[2021-02-19] MEDS: NS 1,000 ML IV 1,000 ML IV SCH ×4 (05:27→18:25)
[2021-02-19] MEDS ORDERED: NS 1,000 ML IV 1,000 ML ONE (07:50)
[2021-02-19] MEDS ORDERED: COZAAR PO SCH (09:00)
[2021-02-19] MEDS ORDERED: CITROMA PO ONE (09:07)
[2021-02-19] MEDS: AMARYL TAB 4 MG PO SCH (09:08)
[2021-02-19] MEDS: ZESTRIL TAB 5 MG PO SCH (09:09)
[2021-02-19] MEDS ORDERED: CITROMA ONE (09:10)
[2021-02-19] MEDS ORDERED: PROTONIX INJ 40 MG VIAL ONE (11:47)
[2021-02-19] MEDS: PROTONIX INJ 40 MG VIAL IVP SCH (11:51)
--- NOTE | 2021-02-19 12:27 | US ---
HISTORYReason For StudySTUDYGALL BLADDERCOMPARISONCT abdomen and pelvis without contrast from 01/1921.TECHNIQUERight upper quadrant sonogram.FINDINGSThe liver appears normal in echogenicity and echotexture and measures up to 14.8 x 12 x 12.5 cm in the right lobe. Portal vein has hepatopetal flow. Hepatic artery and veins are patent. There are multiple cholelithiasis with wall echo shadow sign. Borderline gallbladder wall at just under 3 mm. Common duct is normal at at 3 mm. The right kidney measures 9.4 x 5.1 x 4.3 cm. No obvious renal mass, stone or hydronephrosis. IVC measures normal proximally. Visualized pancreas appears benign.IMPRESSIONMultiple cholelithiasis with wall echo shadow sign. Borderline gallbladder wall thickening. Indeterminate for acute cholecystitis. Consider HIDA scan for further evaluation as clinically warranted.Electronically signed by: Ge Shelby (Feb 19, 2021 12:25:46)
--- NOTE | 2021-02-19 18:21 | DR.H&P ---
H&P History & Physical for Day of: H&P Date: 02/18/21 Chief Complaint Chief Complaint: N/V with abdominal postprandial Allergies Allergies Allergy/AdvReac Type Severity Reaction Status Date / Time No Known Drug Allergies Allergy Verified 02/18/21 14:27 History of Present Illness History of Present Illness: This is a 75 yo wm who presented to ED with a 34- day history of N/V and abdominal pain. He also reports decreased appetite and decreased BM's recently as well. Past Medical History Past Medical History: Diabetes, Dyslipidemia, Hypertension and [place] Past Surgical History Surgical History: Angioplasty/Stents and CABG/Valve Surgery Family History Family Medical History: Diabetes Mellitus and Hypertension Social History Does patient currently use any type of tobacco product: No Have you used tobacco products in the last 12 months: No Type of Tobacco Use: None Does any household member use tobacco: No Alcohol Use: None Drug Use: None Medications Home Medications: No Known Drug Allergies Allergy (Verified 02/18/21 14:27) CONTINUE taking the following medications lisinopril 2.5 mg PO DAILY 02/18/21 [History] Labs Result Diagrams: 02/19/21 03:35 02/19/21 03:35 Labs: Laboratory WBC 7.9 X10^3/uL (3.6-10.0) 02/19/21 03:35 RBC 3.22 X10^6/uL (4.7-6.0) L 02/19/21 03:35 Hgb 10.4 g/dL (13.5-18.0) L 02/19/21 03:35 Hct 29.5 % (42.0-54.0) L 02/19/21 03:35 MCV 91.9 fL (80.0-100.0) 02/19/21 03:35 MCH 32.5 pg (27.0-34.0) 02/19/21 03:35 MCHC 35.3 g/dL (33.0-35.0) H 02/19/21 03:35 RDW 12.8 % (11.6-16.5) 02/19/21 03:35 Plt Count 324 X10^3/uL (150.0-450.0) 02/19/21 03:35 MPV 7.9 fL (7.4-11.0) 02/19/21 03:35 Neut % (Auto) 55.1 % (42.0-75.0) 02/19/21 03:35 Lymph % (Auto) 30.5 % (21.0-51.0) 02/19/21 03:35 [place] % (Auto) 10.6 % (0.0-13.0) 02/19/21 03:35 Eos % (Auto) 2.6 % (0.9-2.9) 02/19/21 03:35 Baso % (Auto) 1.2 % (0.2-1.0) H 02/19/21 03:35 Neut # (Auto) 4.3 x10^3/uL (2.2-4.8) 02/19/21 03:35 Lymph # (Auto) 2.4 X10^3/uL (1.3-2.9) 02/19/21 03:35 [place] # (Auto) 0.8 x10^3/uL (0.3-0.8) 02/19/21 03:35 Eos # (Auto) 0.2 x10^3/uL (0.0-0.2) 02/19/21 03:35 Baso # (Auto) 0.1 X10^3/uL (0.0-0.1) 02/19/21 03:35 Absolute Nucleated RBC 0.0 /100WBC 02/19/21 03:35 Sodium 141 mmol/L (136-145) 02/19/21 03:35 Corrected Sodium 142 mmol/L (136-145) 02/19/21 03:35 Potassium 4.0 mmol/L (3.5-5.1) 02/19/21 03:35 Chloride 104 mmol/L (98-107) 02/19/21 03:35 Carbon Dioxide 30.4 mmol/L (21-32) 02/19/21 03:35 BUN 17 mg/dL (7-18) 02/19/21 03:35 Creatinine 1.10 mg/dL (0.70-1.30) 02/19/21 03:35 Est GFR (MDRD) Af Amer > 60 (>60) 02/19/21 03:35 Est GFR (MDRD) Non-Af > 60 (>60) 02/19/21 03:35 Glucose 140 mg/dL (65-99) H 02/19/21 03:35 POC Glucose (mg/dL) 96 mg/dL (65-99) 02/19/21 15:52 Calcium 8.4 mg/dL (8.5-10.1) L 02/19/21 03:35 Corrected Calcium 9.6 mg/dL (8.5-10.1) 02/19/21 03:35 Total Bilirubin 0.30 mg/dL (0.2-1.0) 02/19/21 03:35 AST 10 Units/L (15-37) L 02/19/21 03:35 ALT 13 Units/L (12-78) 02/19/21 03:35 Alkaline Phosphatase 77 Units/L (46-116) 02/19/21 03:35 Creatine Kinase 24 Units/L (39-308) L 02/18/21 14:30 CK-MB (CK-2) < 1.0 ng/mL (0-4.0) 02/18/21 14:30 CK/CKMB % Calc 4.2 % (<4) 02/18/21 14:30 Troponin I < 0.02 ng/mL (0-1.5) 02/18/21 14:30 Total Protein 6.0 g/dL (6.4-8.2) L 02/19/21 03:35 Albumin 2.5 g/dL (3.4-5.0) L 02/19/21 03:35 Globulin 3.5 g/dL (2.5-4.5) 02/19/21 03:35 Albumin/Globulin Ratio 0.7 Ratio (1.1-2.1) L 02/19/21 03:35 Amylase 33 Units/L (25-115) 02/19/21 03:35 Lipase 94 Units/L (73-393) 02/19/21 03:35 Specimen Type Clean catch urine 02/19/21 04:10 Urine Color Yellow (YELLOW) 02/19/21 04:10 Urine Appearance Clear (CLEAR) 02/19/21 04:10 Urine pH 6.5 (5.0 - 8.0) 02/19/21 04:10 Ur Specific [place] 1.015 (1.000-1.030) 02/19/21 04:10 Urine Protein 1+ (NEGATIVE) 02/19/21 04:10 Urine Glucose (UA) 2+ (NEGATIVE) 02/19/21 04:10 Urine Ketones Negative (NEGATIVE) 02/19/21 04:10 Urine Occult Blood Negative (NEGATIVE) 02/19/21 04:10 Urine Nitrite Negative (NEGATIVE) 02/19/21 04:10 Urine Bilirubin Negative (NEGATIVE) 02/19/21 04:10 Urine Urobilinogen 1+ (NORMAL) 02/19/21 04:10 Ur Leukocyte Esterase Negative (NEGATIVE) 02/19/21 04:10 Urine RBC 0-2 /HPF (0-3) 02/19/21 04:10 Urine WBC 0-2 /HPF (0-5) 02/19/21 04:10 Ur Squamous Epith Cells Rare /HPF (NEGATIVE) 02/19/21 04:10 Urine Bacteria Trace /HPF (NEGATIVE) 02/19/21 04:10 Ur Culture Indicated? No/not indicated 02/19/21 04:10 SARS CoV-2 RNA Rapid PAIGE Negative (NEGATIVE) 02/18/21 16:40 Review of Systems Constitutional: No Symptoms Reported Eyes: No Symptoms Reported Respiratory: No Symptoms Reported Cardiovascular: No Symptoms Reported Gastrointestinal: Nausea, Vomiting and Constipation Genitourinary: No Symptoms Reported Musculoskeletal: No Symptoms Reported Skin: No Symptoms Reported Neurological: Weakness Physical Exam Vital Signs: Temperature 98.8 F Pulse Rate [Right Brachial] 90 Pulse Rate [Left] 86 Pulse Rate 82 Respiratory Rate 20 Blood Pressure [Right Arm] 163/85 Blood Pressure [Left Arm] 155/85 Blood Pressure 148/77 O2 Sat by Pulse Oximetry 99 Oriented: Normal Eyes: Normal Ear: Normal Nose: Normal Throat: Normal Respiratory: Clear Throughout Cardiovascular: Normal : Normal Auscultation: Bowel Sounds: Other (hypoactive bowel sounds) Tenderness: RUQ and Mild Skin: Normal Musculoskeletal: Normal Psychiatric: Normal Mood Description: Calm Affect: Normal Speech Pattern: Clear Assessment/Plan (1) Acute dehydration: Status: Acute Plan: IV hydration (2) Nausea and vomiting in adult patient: Status: Acute Plan: Ondansetron (3) RUQ pain: Status: Acute Plan: Consult general Surgery for evaluation. (4) DM2 (diabetes mellitus, type 2): Status: Acute Plan: Cover with Insulin sliding scale (5) HTN (hypertension): Status: Acute Plan: Resume home meds. (6) CAD (coronary artery disease): Status: Acute (7) Dyslipidemia: Status: Acute Plan: Resume Atorvastatin at HS.
--- NOTE | 2021-02-19 18:25 | PCM.PROG ---
Progress Note Progress Note for Day of Date of Exam: 02/19/21 Subjective Subjective: Patient is feeling better this am. No N/V at this time. Abdominal pain is better. No BM yet. Past Medical Family Social History Past Med/Fam/Surg Hx: No changes since H&P Allergies: Allergies No Known Drug Allergies Allergy (Verified 02/18/21 14:27) Review of Systems ROS: No change since H&P Vital Signs and I&O's Vital Signs: Temperature 98.8 F Pulse Rate [Right Brachial] 90 Pulse Rate [Left] 86 Pulse Rate 82 Respiratory Rate 20 Blood Pressure [Right Arm] 163/85 Blood Pressure [Left Arm] 155/85 Blood Pressure 148/77 O2 Sat by Pulse Oximetry 99 Intake and Output: Intake & Output 02/17/21 02/18/21 02/19/21 02/20/21 11:59 11:59 11:59 11:59 Intake Total 947 / 947 Output Total 800 / 800 Balance 147 / 147 Physical Exam Oriented: Normal Eyes: Normal Ear: Normal Nose: Normal Throat: Normal Cardiovascular: Normal : Normal Auscultation: Bowel Sounds: Other (hypoactive bowel sounds) Tenderness: RUQ and Mild Skin: Normal Musculoskeletal: Normal Psychiatric: Normal Mood Description: Calm Affect: Normal Speech Pattern: Clear Laboratory and Diagnostics Result Diagrams: 02/19/21 03:35 02/19/21 03:35 Labs: Laboratory WBC 7.9 X10^3/uL (3.6-10.0) 02/19/21 03:35 RBC 3.22 X10^6/uL (4.7-6.0) L 02/19/21 03:35 Hgb 10.4 g/dL (13.5-18.0) L 02/19/21 03:35 Hct 29.5 % (42.0-54.0) L 02/19/21 03:35 MCV 91.9 fL (80.0-100.0) 02/19/21 03:35 MCH 32.5 pg (27.0-34.0) 02/19/21 03:35 MCHC 35.3 g/dL (33.0-35.0) H 02/19/21 03:35 RDW 12.8 % (11.6-16.5) 02/19/21 03:35 Plt Count 324 X10^3/uL (150.0-450.0) 02/19/21 03:35 MPV 7.9 fL (7.4-11.0) 02/19/21 03:35 Neut % (Auto) 55.1 % (42.0-75.0) 02/19/21 03:35 Lymph % (Auto) 30.5 % (21.0-51.0) 02/19/21 03:35 [place] % (Auto) 10.6 % (0.0-13.0) 02/19/21 03:35 Eos % (Auto) 2.6 % (0.9-2.9) 02/19/21 03:35 Baso % (Auto) 1.2 % (0.2-1.0) H 02/19/21 03:35 Neut # (Auto) 4.3 x10^3/uL (2.2-4.8) 02/19/21 03:35 Lymph # (Auto) 2.4 X10^3/uL (1.3-2.9) 02/19/21 03:35 [place] # (Auto) 0.8 x10^3/uL (0.3-0.8) 02/19/21 03:35 Eos # (Auto) 0.2 x10^3/uL (0.0-0.2) 02/19/21 03:35 Baso # (Auto) 0.1 X10^3/uL (0.0-0.1) 02/19/21 03:35 Absolute Nucleated RBC 0.0 /100WBC 02/19/21 03:35 Sodium 141 mmol/L (136-145) 02/19/21 03:35 Corrected Sodium 142 mmol/L (136-145) 02/19/21 03:35 Potassium 4.0 mmol/L (3.5-5.1) 02/19/21 03:35 Chloride 104 mmol/L (98-107) 02/19/21 03:35 Carbon Dioxide 30.4 mmol/L (21-32) 02/19/21 03:35 BUN 17 mg/dL (7-18) 02/19/21 03:35 Creatinine 1.10 mg/dL (0.70-1.30) 02/19/21 03:35 Est GFR (MDRD) Af Amer > 60 (>60) 02/19/21 03:35 Est GFR (MDRD) Non-Af > 60 (>60) 02/19/21 03:35 Glucose 140 mg/dL (65-99) H 02/19/21 03:35 POC Glucose (mg/dL) 96 mg/dL (65-99) 02/19/21 15:52 Calcium 8.4 mg/dL (8.5-10.1) L 02/19/21 03:35 Corrected Calcium 9.6 mg/dL (8.5-10.1) 02/19/21 03:35 Total Bilirubin 0.30 mg/dL (0.2-1.0) 02/19/21 03:35 AST 10 Units/L (15-37) L 02/19/21 03:35 ALT 13 Units/L (12-78) 02/19/21 03:35 Alkaline Phosphatase 77 Units/L (46-116) 02/19/21 03:35 Creatine Kinase 24 Units/L (39-308) L 02/18/21 14:30 CK-MB (CK-2) < 1.0 ng/mL (0-4.0) 02/18/21 14:30 CK/CKMB % Calc 4.2 % (<4) 02/18/21 14:30 Troponin I < 0.02 ng/mL (0-1.5) 02/18/21 14:30 Total Protein 6.0 g/dL (6.4-8.2) L 02/19/21 03:35 Albumin 2.5 g/dL (3.4-5.0) L 02/19/21 03:35 Globulin 3.5 g/dL (2.5-4.5) 02/19/21 03:35 Albumin/Globulin Ratio 0.7 Ratio (1.1-2.1) L 02/19/21 03:35 Amylase 33 Units/L (25-115) 02/19/21 03:35 Lipase 94 Units/L (73-393) 02/19/21 03:35 Specimen Type Clean catch urine 02/19/21 04:10 Urine Color Yellow (YELLOW) 02/19/21 04:10 Urine Appearance Clear (CLEAR) 02/19/21 04:10 Urine pH 6.5 (5.0 - 8.0) 02/19/21 04:10 Ur Specific [place] 1.015 (1.000-1.030) 02/19/21 04:10 Urine Protein 1+ (NEGATIVE) 02/19/21 04:10 Urine Glucose (UA) 2+ (NEGATIVE) 02/19/21 04:10 Urine Ketones Negative (NEGATIVE) 02/19/21 04:10 Urine Occult Blood Negative (NEGATIVE) 02/19/21 04:10 Urine Nitrite Negative (NEGATIVE) 02/19/21 04:10 Urine Bilirubin Negative (NEGATIVE) 02/19/21 04:10 Urine Urobilinogen 1+ (NORMAL) 02/19/21 04:10 Ur Leukocyte Esterase Negative (NEGATIVE) 02/19/21 04:10 Urine RBC 0-2 /HPF (0-3) 02/19/21 04:10 Urine WBC 0-2 /HPF (0-5) 02/19/21 04:10 Ur Squamous Epith Cells Rare /HPF (NEGATIVE) 02/19/21 04:10 Urine Bacteria Trace /HPF (NEGATIVE) 02/19/21 04:10 Ur Culture Indicated? No/not indicated 02/19/21 04:10 SARS CoV-2 RNA Rapid PAIGE Negative (NEGATIVE) 02/18/21 16:40 Radiology Reviewed: Yes Plan (1) Constipation: Status: Acute Plan: Soap Suds Enema (2) RUQ pain: Status: Acute Plan: Consult general Surgery for evaluation. (3) DM2 (diabetes mellitus, type 2): Status: Acute Plan: Cover with Insulin sliding scale (4) HTN (hypertension): Status: Acute Plan: Resume home meds. (5) CAD (coronary artery disease): Status: Acute (6) Dyslipidemia: Status: Acute Plan: Resume Atorvastatin at HS. (7) Acute dehydration: Status: Resolved Narrative Support Text: Dehydration resolved. Plan: IV hydration (8) Nausea and vomiting in adult patient: Status: Resolved Plan: Ondansetron
[2021-02-19] MEDS: SNACK - Diabetic Appropriate PO SCH (20:13)
[2021-02-19] MEDS: ASPIRIN EC 81 MG PO SCH (21:52)
[2021-02-19] MEDS: LIPITOR TAB 20 MG PO SCH (21:53)
[2021-02-20] MEDS: NS 1,000 ML IV 1,000 ML IV SCH ×3 (03:10→19:48)
[2021-02-20 06:04] LABS: BASOPHILS # (AUTO) 0.1 X10^3/uL (0.0-0.1); BASOPHILS % (AUTO) 1.2 % (0.2-1.0); EOSINOPHILS # (AUTO) 0.2 x10^3/uL (0.0-0.2); EOSINOPHILS % (AUTO) 2.3 % (0.9-2.9); HEMATOCRIT 31.2 % (42.0-54.0); HEMOGLOBIN 10.9 g/dL (13.5-18.0); LYMPHOCYTES # (AUTO) 2.4 X10^3/uL (1.3-2.9); LYMPHOCYTES % (AUTO) 32.9 % (21.0-51.0); MEAN CORPUSCULAR HEMOGLOBIN 31.8 pg (27.0-34.0); MEAN PLATELET VOLUME 8.3 fL (7.4-11.0); MONOCYTES # (AUTO) 0.8 x10^3/uL (0.3-0.8); MONOCYTES % (AUTO) 10.2 % (0.0-13.0); NEUTROPHILS % (AUTO) 53.4 % (42.0-75.0); PLATELET COUNT 320 X10^3/uL (150.0-450.0); RED BLOOD COUNT 3.43 X10^6/uL (4.7-6.0); WHITE BLOOD COUNT 7.4 X10^3/uL (3.6-10.0)
[2021-02-20 06:31] LABS: ALANINE AMINOTRANSFERASE 13 Units/L (12-78); ALBUMIN 2.7 g/dL (3.4-5.0); ALKALINE PHOSPHATASE 84 Units/L (46-116); ASPARTATE AMINO TRANSFERASE 14 Units/L (15-37); BLOOD UREA NITROGEN 14 mg/dL (7-18); CALCIUM 8.4 mg/dL (8.5-10.1); CARBON DIOXIDE 26.5 mmol/L (21-32); CHLORIDE 105 mmol/L (98-107); COR CA(FOR HYPOALB) 9.4 mg/dL (8.5-10.1); COR NA(FOR HYPERGLY) 140 mmol/L (136-145); CREATININE 1.07 mg/dL (0.70-1.30); SODIUM 139 mmol/L (136-145); TOTAL PROTEIN 6.4 g/dL (6.4-8.2); eGFR NON BLACK RACES > 60 (>60)
[2021-02-20] MEDS: PROTONIX INJ 40 MG VIAL IVP SCH (09:16)
[2021-02-20] MEDS: ZESTRIL TAB 5 MG PO SCH (09:53)
--- NOTE | 2021-02-20 13:13 | RAD ---
HISTORYPRE OP HTN, [place], DM, DYSLIPIDEMIA SX: ABDOMINAL, ANGIOPLASTY, CABG.brSTUDYCHEST, 1 [id number] trachea is midline. 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 Status post CABG. There is no evidence of pleural effusions or pulmonary edema. There is stable mild cardiomegaly. No dominant alveolar radiopacities. No pneumothorax. Osseus structures demonstrate no focal abnormalitiesIMPRESSIONNo acute cardiopulmonary findings .Electronically signed by: Alyssa Gant (Feb 20, 2021 13:11:20)
--- NOTE | 2021-02-20 14:05 | PCM.PROG ---
Progress Note Progress Note for Day of Date of Exam: 02/20/21 Subjective Subjective: Patient is feeling better this am. No N/V at this time. Abdominal pain is better. GB U/S shows Past Medical Family Social History Past Med/Fam/Surg Hx: No changes since H&P Allergies: Allergies No Known Drug Allergies Allergy (Verified 02/18/21 14:27) Review of Systems ROS: No change since H&P Vital Signs and I&O's Vital Signs: Temperature 98.8 F Pulse Rate [Right Brachial] 78 Pulse Rate [Left] 76 Pulse Rate 82 Respiratory Rate 20 Blood Pressure [Right Arm] 163/85 Blood Pressure [Left Arm] 148/72 Blood Pressure 148/77 O2 Sat by Pulse Oximetry 97 Intake and Output: Intake & Output 02/18/21 02/19/21 02/20/21 02/21/21 11:59 11:59 11:59 11:59 Intake Total 947 / 947 1761 / 1761 Output Total 800 / 800 550 / 550 Balance 147 / 147 1211 / 1211 Physical Exam Oriented: Normal Eyes: Normal Ear: Normal Nose: Normal Throat: Normal Cardiovascular: Normal : Normal Auscultation: Bowel Sounds: Other (hypoactive bowel sounds) Tenderness: RUQ and Mild Skin: Normal Musculoskeletal: Normal Psychiatric: Normal Mood Description: Calm Affect: Normal Speech Pattern: Clear Laboratory and Diagnostics Result Diagrams: 02/20/21 05:30 02/20/21 05:30 Labs: Laboratory WBC 7.4 X10^3/uL (3.6-10.0) 02/20/21 05:30 RBC 3.43 X10^6/uL (4.7-6.0) L 02/20/21 05:30 Hgb 10.9 g/dL (13.5-18.0) L 02/20/21 05:30 Hct 31.2 % (42.0-54.0) L 02/20/21 05:30 MCV 91.0 fL (80.0-100.0) 02/20/21 05:30 MCH 31.8 pg (27.0-34.0) 02/20/21 05:30 MCHC 35.0 g/dL (33.0-35.0) 02/20/21 05:30 RDW 13.0 % (11.6-16.5) 02/20/21 05:30 Plt Count 320 X10^3/uL (150.0-450.0) 02/20/21 05:30 MPV 8.3 fL (7.4-11.0) 02/20/21 05:30 Neut % (Auto) 53.4 % (42.0-75.0) 02/20/21 05:30 Lymph % (Auto) 32.9 % (21.0-51.0) 02/20/21 05:30 [place] % (Auto) 10.2 % (0.0-13.0) 02/20/21 05:30 Eos % (Auto) 2.3 % (0.9-2.9) 02/20/21 05:30 Baso % (Auto) 1.2 % (0.2-1.0) H 02/20/21 05:30 Neut # (Auto) 4.0 x10^3/uL (2.2-4.8) 02/20/21 05:30 Lymph # (Auto) 2.4 X10^3/uL (1.3-2.9) 02/20/21 05:30 [place] # (Auto) 0.8 x10^3/uL (0.3-0.8) 02/20/21 05:30 Eos # (Auto) 0.2 x10^3/uL (0.0-0.2) 02/20/21 05:30 Baso # (Auto) 0.1 X10^3/uL (0.0-0.1) 02/20/21 05:30 Absolute Nucleated RBC 0.1 /100WBC 02/20/21 05:30 Sodium 139 mmol/L (136-145) 02/20/21 05:30 Corrected Sodium 140 mmol/L (136-145) 02/20/21 05:30 Potassium 4.0 mmol/L (3.5-5.1) 02/20/21 05:30 Chloride 105 mmol/L (98-107) 02/20/21 05:30 Carbon Dioxide 26.5 mmol/L (21-32) 02/20/21 05:30 BUN 14 mg/dL (7-18) 02/20/21 05:30 Creatinine 1.07 mg/dL (0.70-1.30) 02/20/21 05:30 Est GFR (MDRD) Af Amer > 60 (>60) 02/20/21 05:30 Est GFR (MDRD) Non-Af > 60 (>60) 02/20/21 05:30 Glucose 149 mg/dL (65-99) H 02/20/21 05:30 POC Glucose (mg/dL) 99 mg/dL (65-99) 02/20/21 10:53 Calcium 8.4 mg/dL (8.5-10.1) L 02/20/21 05:30 Corrected Calcium 9.4 mg/dL (8.5-10.1) 02/20/21 05:30 Total Bilirubin 0.30 mg/dL (0.2-1.0) 02/20/21 05:30 AST 14 Units/L (15-37) L 02/20/21 05:30 ALT 13 Units/L (12-78) 02/20/21 05:30 Alkaline Phosphatase 84 Units/L (46-116) 02/20/21 05:30 Creatine Kinase 24 Units/L (39-308) L 02/18/21 14:30 CK-MB (CK-2) < 1.0 ng/mL (0-4.0) 02/18/21 14:30 CK/CKMB % Calc 4.2 % (<4) 02/18/21 14:30 Troponin I < 0.02 ng/mL (0-1.5) 02/18/21 14:30 Total Protein 6.4 g/dL (6.4-8.2) 02/20/21 05:30 Albumin 2.7 g/dL (3.4-5.0) L 02/20/21 05:30 Globulin 3.7 g/dL (2.5-4.5) 02/20/21 05:30 Albumin/Globulin Ratio 0.7 Ratio (1.1-2.1) L 02/20/21 05:30 Amylase 33 Units/L (25-115) 02/19/21 03:35 Lipase 94 Units/L (73-393) 02/19/21 03:35 Specimen Type Clean catch urine 02/19/21 04:10 Urine Color Yellow (YELLOW) 02/19/21 04:10 Urine Appearance Clear (CLEAR) 02/19/21 04:10 Urine pH 6.5 (5.0 - 8.0) 02/19/21 04:10 Ur Specific [place] 1.015 (1.000-1.030) 02/19/21 04:10 Urine Protein 1+ (NEGATIVE) 02/19/21 04:10 Urine Glucose (UA) 2+ (NEGATIVE) 02/19/21 04:10 Urine Ketones Negative (NEGATIVE) 02/19/21 04:10 Urine Occult Blood Negative (NEGATIVE) 02/19/21 04:10 Urine Nitrite Negative (NEGATIVE) 02/19/21 04:10 Urine Bilirubin Negative (NEGATIVE) 02/19/21 04:10 Urine Urobilinogen 1+ (NORMAL) 02/19/21 04:10 Ur Leukocyte Esterase Negative (NEGATIVE) 02/19/21 04:10 Urine RBC 0-2 /HPF (0-3) 02/19/21 04:10 Urine WBC 0-2 /HPF (0-5) 02/19/21 04:10 Ur Squamous Epith Cells Rare /HPF (NEGATIVE) 02/19/21 04:10 Urine Bacteria Trace /HPF (NEGATIVE) 02/19/21 04:10 Ur Culture Indicated? No/not indicated 02/19/21 04:10 SARS CoV-2 RNA Rapid PAIGE Negative (NEGATIVE) 02/18/21 16:40 Plan (1) Constipation: Status: Acute Plan: Soap Suds Enema (2) RUQ pain: Status: Acute Plan: Consult general Surgery for evaluation. (3) DM2 (diabetes mellitus, type 2): Status: Acute Plan: Cover with Insulin sliding scale (4) HTN (hypertension): Status: Acute Plan: Resume home meds. (5) CAD (coronary artery disease): Status: Acute (6) Dyslipidemia: Status: Acute Plan: Resume Atorvastatin at HS. (7) Acute dehydration: Status: Resolved Plan: IV hydration (8) Nausea and vomiting in adult patient: Status: Resolved Plan: Ondansetron
--- NOTE | 2021-02-20 14:08 | PCM.PROG ---
Progress Note Progress Note for Day of Date of Exam: 02/20/21 Subjective Subjective: Patient is feeling better this am. No N/V at this time. Abdominal pain is better. GB U/S shows cholelithiasis. Past Medical Family Social History Past Med/Fam/Surg Hx: No changes since H&P Allergies: Allergies No Known Drug Allergies Allergy (Verified 02/18/21 14:27) Review of Systems ROS: No change since H&P Vital Signs and I&O's Vital Signs: Temperature 98.8 F Pulse Rate [Right Brachial] 78 Pulse Rate [Left] 76 Pulse Rate 82 Respiratory Rate 20 Blood Pressure [Right Arm] 163/85 Blood Pressure [Left Arm] 148/72 Blood Pressure 148/77 O2 Sat by Pulse Oximetry 97 Intake and Output: Intake & Output 02/18/21 02/19/21 02/20/21 02/21/21 11:59 11:59 11:59 11:59 Intake Total 947 / 947 1761 / 1761 Output Total 800 / 800 550 / 550 Balance 147 / 147 1211 / 1211 Physical Exam Oriented: Normal Eyes: Normal Ear: Normal Nose: Normal Throat: Normal Cardiovascular: Normal : Normal Auscultation: Bowel Sounds: Other (hypoactive bowel sounds) Tenderness: RUQ and Mild Skin: Normal Musculoskeletal: Normal Psychiatric: Normal Mood Description: Calm Affect: Normal Speech Pattern: Clear Laboratory and Diagnostics Result Diagrams: 02/20/21 05:30 02/20/21 05:30 Labs: Laboratory WBC 7.4 X10^3/uL (3.6-10.0) 02/20/21 05:30 RBC 3.43 X10^6/uL (4.7-6.0) L 02/20/21 05:30 Hgb 10.9 g/dL (13.5-18.0) L 02/20/21 05:30 Hct 31.2 % (42.0-54.0) L 02/20/21 05:30 MCV 91.0 fL (80.0-100.0) 02/20/21 05:30 MCH 31.8 pg (27.0-34.0) 02/20/21 05:30 MCHC 35.0 g/dL (33.0-35.0) 02/20/21 05:30 RDW 13.0 % (11.6-16.5) 02/20/21 05:30 Plt Count 320 X10^3/uL (150.0-450.0) 02/20/21 05:30 MPV 8.3 fL (7.4-11.0) 02/20/21 05:30 Neut % (Auto) 53.4 % (42.0-75.0) 02/20/21 05:30 Lymph % (Auto) 32.9 % (21.0-51.0) 02/20/21 05:30 [place] % (Auto) 10.2 % (0.0-13.0) 02/20/21 05:30 Eos % (Auto) 2.3 % (0.9-2.9) 02/20/21 05:30 Baso % (Auto) 1.2 % (0.2-1.0) H 02/20/21 05:30 Neut # (Auto) 4.0 x10^3/uL (2.2-4.8) 02/20/21 05:30 Lymph # (Auto) 2.4 X10^3/uL (1.3-2.9) 02/20/21 05:30 [place] # (Auto) 0.8 x10^3/uL (0.3-0.8) 02/20/21 05:30 Eos # (Auto) 0.2 x10^3/uL (0.0-0.2) 02/20/21 05:30 Baso # (Auto) 0.1 X10^3/uL (0.0-0.1) 02/20/21 05:30 Absolute Nucleated RBC 0.1 /100WBC 02/20/21 05:30 Sodium 139 mmol/L (136-145) 02/20/21 05:30 Corrected Sodium 140 mmol/L (136-145) 02/20/21 05:30 Potassium 4.0 mmol/L (3.5-5.1) 02/20/21 05:30 Chloride 105 mmol/L (98-107) 02/20/21 05:30 Carbon Dioxide 26.5 mmol/L (21-32) 02/20/21 05:30 BUN 14 mg/dL (7-18) 02/20/21 05:30 Creatinine 1.07 mg/dL (0.70-1.30) 02/20/21 05:30 Est GFR (MDRD) Af Amer > 60 (>60) 02/20/21 05:30 Est GFR (MDRD) Non-Af > 60 (>60) 02/20/21 05:30 Glucose 149 mg/dL (65-99) H 02/20/21 05:30 POC Glucose (mg/dL) 99 mg/dL (65-99) 02/20/21 10:53 Calcium 8.4 mg/dL (8.5-10.1) L 02/20/21 05:30 Corrected Calcium 9.4 mg/dL (8.5-10.1) 02/20/21 05:30 Total Bilirubin 0.30 mg/dL (0.2-1.0) 02/20/21 05:30 AST 14 Units/L (15-37) L 02/20/21 05:30 ALT 13 Units/L (12-78) 02/20/21 05:30 Alkaline Phosphatase 84 Units/L (46-116) 02/20/21 05:30 Creatine Kinase 24 Units/L (39-308) L 02/18/21 14:30 CK-MB (CK-2) < 1.0 ng/mL (0-4.0) 02/18/21 14:30 CK/CKMB % Calc 4.2 % (<4) 02/18/21 14:30 Troponin I < 0.02 ng/mL (0-1.5) 02/18/21 14:30 Total Protein 6.4 g/dL (6.4-8.2) 02/20/21 05:30 Albumin 2.7 g/dL (3.4-5.0) L 02/20/21 05:30 Globulin 3.7 g/dL (2.5-4.5) 02/20/21 05:30 Albumin/Globulin Ratio 0.7 Ratio (1.1-2.1) L 02/20/21 05:30 Amylase 33 Units/L (25-115) 02/19/21 03:35 Lipase 94 Units/L (73-393) 02/19/21 03:35 Specimen Type Clean catch urine 02/19/21 04:10 Urine Color Yellow (YELLOW) 02/19/21 04:10 Urine Appearance Clear (CLEAR) 02/19/21 04:10 Urine pH 6.5 (5.0 - 8.0) 02/19/21 04:10 Ur Specific [place] 1.015 (1.000-1.030) 02/19/21 04:10 Urine Protein 1+ (NEGATIVE) 02/19/21 04:10 Urine Glucose (UA) 2+ (NEGATIVE) 02/19/21 04:10 Urine Ketones Negative (NEGATIVE) 02/19/21 04:10 Urine Occult Blood Negative (NEGATIVE) 02/19/21 04:10 Urine Nitrite Negative (NEGATIVE) 02/19/21 04:10 Urine Bilirubin Negative (NEGATIVE) 02/19/21 04:10 Urine Urobilinogen 1+ (NORMAL) 02/19/21 04:10 Ur Leukocyte Esterase Negative (NEGATIVE) 02/19/21 04:10 Urine RBC 0-2 /HPF (0-3) 02/19/21 04:10 Urine WBC 0-2 /HPF (0-5) 02/19/21 04:10 Ur Squamous Epith Cells Rare /HPF (NEGATIVE) 02/19/21 04:10 Urine Bacteria Trace /HPF (NEGATIVE) 02/19/21 04:10 Ur Culture Indicated? No/not indicated 02/19/21 04:10 SARS CoV-2 RNA Rapid PAIGE Negative (NEGATIVE) 02/18/21 16:40 Radiology Reviewed: Yes EKG Reviewed: Yes Plan (1) Cholelithiasis: Status: Acute Plan: Patient is medically cleared for Cholecystectomy per Gen. Surgeon Dr. Sharma. (2) Constipation: Status: Acute Plan: Soap Suds Enema (3) RUQ pain: Status: Acute Plan: Consult general Surgery for evaluation. (4) DM2 (diabetes mellitus, type 2): Status: Acute Plan: Cover with Insulin sliding scale (5) HTN (hypertension): Status: Acute Plan: Resume home meds. (6) CAD (coronary artery disease): Status: Acute (7) Dyslipidemia: Status: Acute Plan: Resume Atorvastatin at HS. (8) Acute dehydration: Status: Resolved Plan: IV hydration (9) Nausea and vomiting in adult patient: Status: Resolved Plan: Ondansetron
[2021-02-20] MEDS: AMARYL TAB 4 MG PO SCH (14:19)
[2021-02-20] MEDS: SNACK - Diabetic Appropriate PO SCH (20:00)
[2021-02-20] MEDS ORDERED: NovoLIN R (or HumuLIN R) SUBCUT PRN (20:19)
[2021-02-20] MEDS: ASPIRIN EC 81 MG PO SCH (21:26)
[2021-02-20] MEDS: LIPITOR TAB 20 MG PO SCH (21:26)
[2021-02-21] MEDS: NS 1,000 ML IV 1,000 ML IV SCH ×4 (06:05→20:15)
[2021-02-21 06:07] LABS: BASOPHILS # (AUTO) 0.1 X10^3/uL (0.0-0.1); BASOPHILS % (AUTO) 1.1 % (0.2-1.0); EOSINOPHILS # (AUTO) 0.2 x10^3/uL (0.0-0.2); EOSINOPHILS % (AUTO) 2.3 % (0.9-2.9); HEMATOCRIT 29.8 % (42.0-54.0); HEMOGLOBIN 10.4 g/dL (13.5-18.0); LYMPHOCYTES % (AUTO) 30.2 % (21.0-51.0); MEAN CORPUSCULAR HEMOGLOBIN 31.8 pg (27.0-34.0); MEAN CORPUSCULAR HGB CONC 34.7 g/dL (33.0-35.0); MEAN CORPUSCULAR VOLUME 91.8 fL (80.0-100.0); MEAN PLATELET VOLUME 8.3 fL (7.4-11.0); MONOCYTES # (AUTO) 0.7 x10^3/uL (0.3-0.8); MONOCYTES % (AUTO) 10.2 % (0.0-13.0); NEUTROPHILS # (AUTO) 3.7 x10^3/uL (2.2-4.8); NEUTROPHILS % (AUTO) 56.2 % (42.0-75.0); PLATELET COUNT 272 X10^3/uL (150.0-450.0); RED BLOOD COUNT 3.25 X10^6/uL (4.7-6.0); RED CELL DISTRIBUTION WIDTH 12.8 % (11.6-16.5); WHITE BLOOD COUNT 6.6 X10^3/uL (3.6-10.0)
[2021-02-21 06:15] LABS: ALANINE AMINOTRANSFERASE 17 Units/L (12-78); ALBUMIN 2.7 g/dL (3.4-5.0); ALKALINE PHOSPHATASE 84 Units/L (46-116); ASPARTATE AMINO TRANSFERASE 17 Units/L (15-37); BLOOD UREA NITROGEN 9 mg/dL (7-18); CALCIUM 8.4 mg/dL (8.5-10.1); CARBON DIOXIDE 26.5 mmol/L (21-32); CHLORIDE 106 mmol/L (98-107); COR CA(FOR HYPOALB) 9.4 mg/dL (8.5-10.1); CREATININE 1.06 mg/dL (0.70-1.30); SODIUM 141 mmol/L (136-145); TOTAL PROTEIN 6.3 g/dL (6.4-8.2); eGFR NON BLACK RACES > 60 (>60)
[2021-02-21] MEDS: ZESTRIL TAB 5 MG PO SCH (08:34)
[2021-02-21] MEDS: PROTONIX INJ 40 MG VIAL IVP SCH (08:34)
[2021-02-21] MEDS: AMARYL TAB 4 MG PO SCH (08:34)
[2021-02-21] MEDS ORDERED: FENTANYL VIAL INJ 250 mcg ONE (11:15)
[2021-02-21] MEDS ORDERED: BRIDION ONE (11:15)
[2021-02-21] MEDS ORDERED: ANCEF 1 GRAM IV PREMIX* 2 G/100 ML BAG IV ONE (11:41)
[2021-02-21] MEDS ORDERED: NS 1,000 ML IV 1,000 ML ONE (11:41)
[2021-02-21] MEDS ORDERED: BACTROBAN TOPICAL OINT ONE (11:43)
[2021-02-21] MEDS ORDERED: D50W ABBOJECT SYR IV ONE (11:44)
[2021-02-21] MEDS ORDERED: D50W ABBOJECT SYR ONE (11:55)
[2021-02-21] MEDS ORDERED: XYLOCAINE 2 % (PLAIN) ONE (12:38)
[2021-02-21] MEDS ORDERED: ZOFRAN INJ 4 MG VIAL ONE (12:38)
[2021-02-21] MEDS ORDERED: QUELICIN (OR ANECTINE) ONE (12:38)
[2021-02-21] MEDS ORDERED: EPHEDRINE SULFATE INJ ONE (12:38)
[2021-02-21] MEDS ORDERED: SUPRANE ONE (12:38)
[2021-02-21] MEDS ORDERED: VERSED ONE (12:38)
[2021-02-21] MEDS ORDERED: NORCURON INJ 10 MG VIAL ONE (12:38)
[2021-02-21] MEDS ORDERED: DIPRIVAN VIAL ONE (12:38)
[2021-02-21] MEDS ORDERED: NS IRRIGATION* 3,000 ML ONE (14:03)
[2021-02-21] MEDS ORDERED: BARHEMSYS INJ IVP PRN (14:17)
[2021-02-21] MEDS ORDERED: DILAUDID INJ IVP PRN ×2 (14:17→14:31)
[2021-02-21] MEDS ORDERED: ZOFRAN INJ 4 MG VIAL IVP PRN (14:17)
[2021-02-21] MEDS ORDERED: REGLAN INJ 10 MG VIAL IVP PRN (14:17)
[2021-02-21] MEDS ORDERED: PHENERGAN INJ 25 MG IM PRN (14:17)
[2021-02-21] MEDS ORDERED: BENADRYL INJ 50 MG VIAL IVP PRN (14:17)
[2021-02-21] MEDS: D5 1/2 NS 1,000 ML 1,000 ML IV SCH (15:11)
[2021-02-21] MEDS: ASPIRIN EC 81 MG PO SCH (20:15)
[2021-02-21] MEDS: SNACK - Diabetic Appropriate PO SCH (20:15)
[2021-02-21] MEDS: LIPITOR TAB 20 MG PO SCH (20:16)
[2021-02-22 05:46] LABS: BASOPHILS % (AUTO) 0.5 % (0.2-1.0); EOSINOPHILS # (AUTO) 0.2 x10^3/uL (0.0-0.2); EOSINOPHILS % (AUTO) 2.8 % (0.9-2.9); HEMATOCRIT 29.4 % (42.0-54.0); HEMOGLOBIN 10.2 g/dL (13.5-18.0); LYMPHOCYTES # (AUTO) 1.5 X10^3/uL (1.3-2.9); LYMPHOCYTES % (AUTO) 21.7 % (21.0-51.0); MEAN CORPUSCULAR HEMOGLOBIN 31.8 pg (27.0-34.0); MEAN CORPUSCULAR HGB CONC 34.6 g/dL (33.0-35.0); MEAN PLATELET VOLUME 8.1 fL (7.4-11.0); MONOCYTES # (AUTO) 0.7 x10^3/uL (0.3-0.8); MONOCYTES % (AUTO) 10.1 % (0.0-13.0); NEUTROPHILS # (AUTO) 4.5 x10^3/uL (2.2-4.8); NEUTROPHILS % (AUTO) 64.9 % (42.0-75.0); PLATELET COUNT 235 X10^3/uL (150.0-450.0); RED CELL DISTRIBUTION WIDTH 13.2 % (11.6-16.5); WHITE BLOOD COUNT 6.9 X10^3/uL (3.6-10.0)
[2021-02-22] MEDS: D5 1/2 NS 1,000 ML 1,000 ML IV SCH (05:56)
[2021-02-22] MEDS: NS 1,000 ML IV 1,000 ML IV SCH ×2 (05:56→12:57)
[2021-02-22 05:58] LABS: ALANINE AMINOTRANSFERASE 22 Units/L (12-78); ALBUMIN 2.5 g/dL (3.4-5.0); ALKALINE PHOSPHATASE 82 Units/L (46-116); ASPARTATE AMINO TRANSFERASE 24 Units/L (15-37); BLOOD UREA NITROGEN 8 mg/dL (7-18); CALCIUM 8.2 mg/dL (8.5-10.1); CARBON DIOXIDE 28.9 mmol/L (21-32); CHLORIDE 107 mmol/L (98-107); COR CA(FOR HYPOALB) 9.4 mg/dL (8.5-10.1); COR NA(FOR HYPERGLY) 143 mmol/L (136-145); CREATININE 1.07 mg/dL (0.70-1.30); SODIUM 141 mmol/L (136-145); eGFR NON BLACK RACES > 60 (>60)
[2021-02-22] MEDS: ZESTRIL TAB 5 MG PO SCH (08:19)
[2021-02-22] MEDS: AMARYL TAB 4 MG PO SCH ×2 (08:19→09:05)
[2021-02-22] MEDS: PROTONIX INJ 40 MG VIAL IVP SCH (08:19)
[2021-02-22 12:19] VITALS: BP 141/67
== END 2021-02-22 14:00 | disposition home or self-care (01) ==
LOC: U 14:08 → ER 14:08 → OBS 14:08 → MED/SURG 02-19 13:36
PROVIDERS: ADMIT Family Medicine; ATTEND Family Medicine
DX: E86.0 Dehydration; I10 Essential (primary) hypertension; E11.65 Type 2 diabetes mellitus with hyperglycemia; K80.12 Calculus of gallbladder with acute and chronic cholecystitis without obstruction; R94.31 Abnormal electrocardiogram [ECG] [EKG]; R26.89 Other abnormalities of gait and mobility; Z20.822 Contact with and (suspected) exposure to COVID-19; K66.0 Peritoneal adhesions (postprocedural) (postinfection); I25.2 Old myocardial infarction; E78.2 Mixed hyperlipidemia; I25.10 Atherosclerotic heart disease of native coronary artery without angina pectoris; Z98.890 Other specified postprocedural states; K59.00 Constipation, unspecified; K82.8 Other specified diseases of gallbladder

== ENCOUNTER 2024-09-15 08:20 | Observation (INO) ==
[2024-09-15 08:38] LABS: MEAN PLATELET VOLUME 8.7 fL (7.4-11.0); RED CELL DISTRIBUTION WIDTH 15.0 % (11.6-16.5)
[2024-09-15 08:41] LABS: INR 1.14 (0.8-1.3)
--- NOTE | 2024-09-15 08:43 | DR.SOBA ---
HPI Time Seen Time Seen by Provider: 09/15/24 08:27 Primary Care Physician Primary Care Physician: DOMENICA Pantoja Complaints Chief Complaint Doctors Comments: 79 yo M, hx CAD, CHF, ~100 pack yr smoker, c/o increasing dyspnea over the past week, worse the past 12h. In addition, [id number] who is his primary pipe fitter, states he has had functional decline the past couple of weeks, becoming increasingly weak and confused. States she is having a difficult time taking care of him, afraid he is going to accidentally hurt himself. Chief Complaint:: Pt c/o progressively worsening shortness of breath since last night. Pt is short of breath at rest and with exertion. Denies any chest pain, cough, fever or chills. Self Treatment fo Chief Complaint: Pt did use duonebs at home that did improve his shortness of breath but he states that when the medication wore off he felt short of breath again. COVID-19 Coronavirus risk:travel/contact w/high risk person: No Has patient experienced Coronavirus symptoms: No Coronavirus symptoms experienced: Shortness of Breath Source History Provided: Patient Mode of Arrival Mode of Arrival: Wheelchair Timing Onset of Chief Complaint: 09/14/24 PMH PMH Past Medical History: Yes Past Medical History: CHF, COPD, Coronary Artery Disease, CVA, Depression, Diabetes, Dyslipidemia, Hypertension and PR Past Medical History Comment: PAD, AAA Past Surgical History: Yes Surgical History: Angioplasty/Stents, CABG/Valve Surgery and Cholecystectomy Past Surgical History Comment: Pacemaker/Defibrillator Family History History of Family Medical Conditions: Yes Family Medical History: Diabetes Mellitus, Cancer, PR, Coronary Artery Disease, Heart Failure and Hypertension Social History Does patient currently use any type of tobacco product: No Have you used tobacco products in the last 12 months: No Type of Tobacco Use: None Does any household member use tobacco: No Alcohol Use: None Do you use any recreational Drugs:: No Lives With: Family Lives Where: Home Travel Risk Coronavirus risk:travel/contact w/high risk person: No Has patient experienced Coronavirus symptoms: No Coronavirus symptoms experienced: Shortness of Breath Infectious screening In the last 2 months have you had wt loss of >10#?: NO Have you had fever, night sweats or hemotysis?: No Have you traveled outside the country in the last 6 months?: No Isolation: Standard ROS Review of Systems Constitutional: Weakness Respiratoy: Short of Breath All Other Systems: Reviewed and Negative PE Vital Signs Vitals: Vital Signs Temperature 97.8 F Pulse Rate 102 Pulse Rate 99 Pulse Rate 93 Pulse Rate 99 Pulse Rate 96 Pulse Rate 98 Pulse Rate 94 Pulse Rate 97 Pulse Rate 96 Pulse Rate 97 Pulse Rate 102 Pulse Rate 107 Pulse Rate 129 Pulse Rate 101 Pulse Rate 100 Pulse Rate 103 Pulse Rate 105 Pulse Rate 118 Pulse Rate 113 Respiratory Rate 25 Respiratory Rate 23 Respiratory Rate 19 Respiratory Rate 28 Respiratory Rate 21 Respiratory Rate 21 Respiratory Rate 18 Respiratory Rate 24 Respiratory Rate 19 Respiratory Rate 21 Respiratory Rate 24 Respiratory Rate 22 Respiratory Rate 27 Respiratory Rate 28 Respiratory Rate 27 Respiratory Rate 23 Respiratory Rate 22 Respiratory Rate 26 Blood Pressure 115/52 Blood Pressure 113/60 Blood Pressure 118/59 Blood Pressure 113/55 Blood Pressure 110/56 Blood Pressure 146/74 Blood Pressure 115/71 Blood Pressure 116/89 Blood Pressure 110/84 O2 Sat by Pulse Oximetry 96 O2 Sat by Pulse Oximetry 95 O2 Sat by Pulse Oximetry 92 O2 Sat by Pulse Oximetry 93 O2 Sat by Pulse Oximetry 91 O2 Sat by Pulse Oximetry 91 O2 Sat by Pulse Oximetry 91 O2 Sat by Pulse Oximetry 95 O2 Sat by Pulse Oximetry 97 O2 Sat by Pulse Oximetry 100 O2 Sat by Pulse Oximetry 100 O2 Sat by Pulse Oximetry 98 O2 Sat by Pulse Oximetry 98 O2 Sat by Pulse Oximetry 93 O2 Sat by Pulse Oximetry 96 General Limitations: No Limitations General Appearance: Alert and In No Apparent Distress Head Head Exam: Normal Inspection Eyes Eye exam: Normal Appearance ENT ENT Exam: Normal Exam Neck Neck Exam: Normal Inspection Chest Chest Inspection: Normal Inspection Respiratory Respiratory Exam: Bilateral: Wheezing Cardiovascular Cardiovascular Exam: Regular Rate and Normal Rhythm Abdominal Exam Abdominal Exam: Normal Inspection, Normal Bowel Sounds and Soft Extremities Extremities Exam: Normal Inspection Back Back Exam: Normal Inspection Neurologic Neurological Exam: Alert and Oriented X3 Psychiatric Psychiatric Exam: Normal Affect and Normal Mood Skin Skin Exam: Warm, Dry, Intact and Normal Color ROR Labs Reviewed Laboratory Results Reviewed?: Yes 09/15/24 08:23 09/15/24 08:23 Laboratory: WBC 8.8 X10^3/uL (3.6-10.0) 09/15/24 08:23 RBC 4.25 X10^6/uL (4.7-6.0) L 09/15/24 08:23 Hgb 12.8 g/dL (13.5-18.0) L 09/15/24 08:23 Hct 38.5 % (42.0-54.0) L 09/15/24 08:23 MCV 90.7 fL (80.0-100.0) 09/15/24 08:23 MCH 30.1 pg (27.0-34.0) 09/15/24 08: MCHC 33.2 g/dL (33.0-35.0) 09/15/24 08: RDW 15.0 % (11.6-16.5) 09/15/24 08: Plt Count 213 X10^3/uL (150.0-450.0) 09/15/24 08: MPV 8.7 fL (7.4-11.0) 09/15/24 08:23 Neut % (Auto) 62.4 % (42.0-75.0) 09/15/24 08:23 Lymph % (Auto) 25.5 % (21.0-51.0) 09/15/24 08:23 [place] % (Auto) 9.1 % (0.0-13.0) 09/15/24 08:23 Eos % (Auto) 1.6 % (0.9-2.9) 09/15/24 08:23 Baso % (Auto) 1.4 % (0.2-1.0) H 09/15/24 08:23 Neut # (Auto) 5.5 x10^3/uL (2.2-4.8) H 09/15/24 08:23 Lymph # (Auto) 2.2 X10^3/uL (1.3-2.9) 09/15/24 08:23 [place] # (Auto) 0.8 x10^3/uL (0.3-0.8) 09/15/24 08:23 Eos # (Auto) 0.1 x10^3/uL (0.0-0.2) 09/15/24 08:23 Baso # (Auto) 0.1 X10^3/uL (0.0-0.1) 09/15/24 08: Absolute Nucleated RBC 0.0 /100WBC 09/15/24 08:23 PT 14.7 SECONDS (11.8-14.3) 09/15/24 08:23 INR Target Range - 09/15/24 08:23 INR 1.14 (0.8-1.3) 09/15/24 08:23 APTT 29.4 SECONDS (22.9-36.5) 09/15/24 08:23 PTT Comment - 09/15/24 08:23 Sodium 140 mmol/L (136-145) 09/15/24 08:23 Corrected Sodium 143 mmol/L (136-145) 09/15/24 08:23 Potassium 4.2 mmol/L (3.5-5.1) 09/15/24 08:23 Chloride 103 mmol/L (98-107) 09/15/24 08:23 Carbon Dioxide 27.4 mmol/L (21-32) 09/15/24 08:23 BUN 27 mg/dL (7-18) H 09/15/24 08:23 Creatinine 1.56 mg/dL (0.70-1.30) H 09/15/24 08:23 Est GFR (MDRD) Af Amer 56 (>60) L 09/15/24 08:23 Est GFR (MDRD) Non-Af 46 (>60) L 09/15/24 08:23 Glucose 238 mg/dL (65-99) H 09/15/24 08:23 Calcium 8.8 mg/dL (8.5-10.1) 09/15/24 08:23 Corrected Calcium TNP 09/15/24 08:23 Magnesium 0.8 mg/dL (2.0-2.9) L 09/15/24 10:06 Total Bilirubin 0.80 mg/dL (0.2-1.0) 09/15/24 08:23 AST 17 Units/L (15-37) 09/15/24 08:23 ALT 24 Units/L (12-78) 09/15/24 08:23 Alkaline Phosphatase 107 Units/L (46-116) 09/15/24 08:23 Creatine Kinase 44 Units/L (39-308) 09/15/24 10:06 Troponin I High Sens 55.9 ng/L (4.0-60.0) 09/15/24 10:06 B-Natriuretic Peptide 958 pg/mL (0-79) H 09/15/24 08:23 Total Protein 9.2 g/dL (6.4-8.2) H 09/15/24 08:23 Albumin 3.9 g/dL (3.4-5.0) 09/15/24 08:23 Globulin 5.3 g/dL (2.5-4.5) H 09/15/24 08:23 Albumin/Globulin Ratio 0.7 Ratio (1.1-2.1) L 09/15/24 08:23 Specimen Type Clean catch urine 09/15/24 09:39 Urine Color Yellow (YELLOW) 09/15/24 09:39 Urine Appearance Clear (CLEAR) 09/15/24 09:39 Urine pH 5.0 (5.0 - 8.0) 09/15/24 09:39 Ur Specific [place] 1.020 (1.000-1.030) 09/15/24 09:39 Urine Protein 2+ (NEGATIVE) 09/15/24 09:39 Urine Glucose (UA) Negative (NEGATIVE) 09/15/24 09:39 Urine Ketones Negative (NEGATIVE) 09/15/24 09:39 Urine Blood 1+ (NEGATIVE) 09/15/24 09:39 Urine Nitrite Negative (NEGATIVE) 09/15/24 09:39 Urine Bilirubin Negative (NEGATIVE) 09/15/24 09:39 Urine Urobilinogen Normal (NORMAL) 09/15/24 09:39 Ur Leukocyte Esterase Negative (NEGATIVE) 09/15/24 09:39 Urine RBC 0-2 /HPF (0-3) 09/15/24 09:39 Urine WBC None seen /HPF (0-5) 09/15/24 09:39 Ur Squamous Epith Cells Rare /HPF (NEGATIVE) 09/15/24 09:39 Urine Bacteria Negative /HPF (NEGATIVE) 09/15/24 09:39 Ur Culture Indicated? No/not indicated 09/15/24 09:39 SARS-CoV-2 (PCR) Negative (NEGATIVE) 09/15/24 09:39 Influenza Type A (PCR) Negative (NEGATIVE) 09/15/24 09:39 Influenza Type B (PCR) Negative (NEGATIVE) 09/15/24 09:39 RSV (PCR) Negative (NEGATIVE) 09/15/24 09:39 Opioid Opioid Risk Tool Age (Markos box if 16-45): No History of Preadolescent Sexual Abuse: No Total: 0 Total Score Risk Category: Low Risk Copyright: [facility] predicting aberrant behaviors Discharge Plan Diagnosis Discharge Problem: Adult failure to thrive, Hypomagnesemia, COPD exacerbation Discharge Plan Patient Disposition: 09 ADMITTED INPATIENT Condition: Stable Prescriptions: No Action metformin 500 mg tablet extended release 24 hr 1,000 mg PO BID Qty: 360 0RF galantamine 8 mg tablet 8 mg PO BID MDD 2 30 Days Qty: 60 1RF Rx Instructions: administer with AM and PM meals Vraylar 1.5 mg capsule 1.5 mg PO QDAY MDD 1 at supper 30 Days Qty: 30 1RF tamsulosin 0.4 mg capsule 0.4 mg PO DAILY clopidogrel 75 mg tablet 75 mg PO QDAY (DME) Continuous Glucose Monitor Misc See Rx Instructions .Route Qty: 1 0RF Rx Instructions: As directed order 1 Dexcom G7 CGM with appropriate sensors and reader (DME) Ultra-Light Rollator Misc See Rx Instructions .Route Qty: 1 0RF Rx Instructions: As directed (DME) walker Misc See Rx Instructions .Route Qty: 1 0RF Rx Instructions: As directed, heavy-duty rollator with seat loperamide [Imodium A-D] 2 mg tablet 2 mg PO Q6H MDD 3 PRN (Reason: loose stool) 30 Days Qty: 30 0RF ipratropium-albuterol 0.5 mg-3 mg(2.5 mg base)/3 mL Solution For Nebulization 3 ml INHALATION Q4H PRN nitroglycerin 0.4 mg Tablet, Sublingual 0.4 mg SUBLINGUAL Q5-15M PRN Rx Instructions: do not exceed 3 doses per episode aspirin 81 mg Tablet,Chewable 81 mg PO QDAY furosemide 20 mg tablet 20 mg PO BID meclizine 12.5 mg tablet 12.5 mg PO TID PRN (Reason: dizziness) Qty: 30 0RF atorvastatin 80 mg tablet 80 mg PO HS MDD 1 glimepiride 4 mg tablet 2 mg PO BID Rx Instructions: Take 1/2 of a tablet every morning and evening per the patients daughter. Health Concerns: Post Hospitalization: new medications and changes needed to prevent readmission or further decline. Pt educated and given instructions on all concerns. Plan of Treatment: Continue with present treatment and follow up plan. Pt is to keep follow up appointment as instructed and take medications as ordered. Orders to Discharge Patient Discharge Orders: Transfer (Routine); Ordered 09/15/24 Ordered By: Mega Rowley Follow ups/Referrals Follow ups/Referrals: NFD,None [Primary Care Provider] - 3 days Instructions Stand Alone Forms: Find Help Web Site, Post Hospital Follow Up Care Print Language: MICRONESIAN ADDITIONAL NOTES Additional Notes Additional Notes: Admitted to Dr Bone
[2024-09-15] MEDS: DUONEB 0.5 MG/3 MG (3 mL) NEB ONE (08:49)
[2024-09-15] MEDS: DECADRON INJ IV ONE (08:52)
[2024-09-15] MEDS: DECADRON INJ IVP ONE (08:52)
--- NOTE | 2024-09-15 09:05 | EKG ---
Test Reason : dyspnea Blood Pressure : */* mmHG Vent. Rate : 104 BPM Atrial Rate : 104 BPM P-R Int : 148 ms QRS Dur : 148 ms QT Int : 370 ms P-R-T Axes : 65 127 71 degrees QTc Int : 486 ms Sinus tachycardia with premature supraventricular complexes Possible Left atrial enlargement Indeterminate axis Left ventricular hypertrophy with QRS widening ( [place] product ) Abnormal ECG When compared with ECG of 08-SEP-2024 13:40, premature supraventricular complexes are now present Left bundle branch block is no longer present Confirmed by Raymond Renae MD ([id number]) on 09/15/2024 1:52:27 PM Referred By: Confirmed By: Raymond Renae MD
[2024-09-15 09:36] LABS: COR NA(FOR HYPERGLY) 143 mmol/L (136-145); CREATININE 1.56 mg/dL (0.70-1.30); eGFR NON BLACK RACES 46 (>60)
[2024-09-15 09:48] LABS: BLOOD/HEMOGLOBIN,URINE 1+ (NEGATIVE); LEUKOCYTE ESTERASE ,URINE NEGATIVE (NEGATIVE); NITRITES,URINE NEGATIVE (NEGATIVE)
--- NOTE | 2024-09-15 09:52 | CT ---
EXAMINATION: BRAIN W/O CON HISTORY: confusion; . COMPARISON STUDY: CT brain 09/08/2024 TECHNIQUE: Images were obtained in brain and bone windows. The above CT scan was done with automated exposure control and the mA and kV was adjusted to obtain quality images according to patient size. FINDINGS: There is no acute intracranial hemorrhage, midline shift or edema present. There is atrophy and deep white matter ischemic change due to small vessel disease. Garcia-white matter differentiation is maintained throughout. There are no intra-axial or extra-axial collections noted. Mild motion artifact.. The sinuses are clear. The mastoid air cells demonstrate fluid in the right mastoid air cells which may represent chronic mastoiditis.. There is no radiographic evidence of depressed skull fracture. Vascular calcification about the skull base.. IMPRESSION: No acute intracranial process. Atrophy and deep white matter ischemic change due to small vessel disease. Trace fluid in the right mastoid air cells suggesting chronic mastoiditis. No significant change compared with prior. THIS IS AN ELECTRONICALLY VERIFIED FINAL REPORT 09/15/2024 9:49 AM - Electronically signed by Bayron Marshall MD
[2024-09-15] MEDS: LASIX IVP ONE (10:04)
[2024-09-15] MEDS: MAGNESIUM SULFATE 1 GRAM/100 mL PREMIX 1 G/100 ML BAG IV SCH (10:05)
[2024-09-15] MEDS: MAG-OX TAB PO SCH ×2 (10:05→14:34)
[2024-09-15 10:11] LABS: APPEARANCE,URINE CLEAR (CLEAR)
[2024-09-15 10:12] LABS: SQUAMOUS EPITHELIAL CELL,UR RARE /HPF (NEGATIVE)
[2024-09-15] MEDS: DECADRON INJ ONE (12:13)
[2024-09-15] MEDS ORDERED: ANTIVERT TAB 25 MG PO PRN (12:23)
[2024-09-15] MEDS ORDERED: LOPERAMIDE PO PRN (12:24)
[2024-09-15 12:46] VITALS: BMI 25.0
[2024-09-15] MEDS: CONSULT PHARMACY - POTASSIUM & MAGNESIUM XX SCH (13:29)
--- NOTE | 2024-09-15 14:00 | EKG ---
Test Reason : DYSPNEA Blood Pressure : */* mmHG Vent. Rate : 109 BPM Atrial Rate : 109 BPM P-R Int : 150 ms QRS Dur : 114 ms QT Int : 374 ms P-R-T Axes : 80 -76 63 degrees QTc Int : 503 ms Sinus tachycardia Possible Left atrial enlargement Left axis deviation Pulmonary disease pattern Minimal voltage criteria for LVH, may be normal variant ( [place] product ) Possible Inferior infarct , age undetermined Abnormal ECG When compared with ECG of 15-SEP-2024 09:03, premature supraventricular complexes are no longer present Questionable change in QRS axis Confirmed by Raymond Renae MD ([id number]) on 09/15/2024 5:49:55 PM Referred By: Confirmed By: Raymond Renae MD
--- NOTE | 2024-09-15 14:30 | RAD ---
EXAM: CHEST, 1 VIEW HISTORY: SOB; COMPARISON: 09/08/2024 FINDINGS: Interstitial opacity is present in the lung bases and perihilar regions. This could represent interstitial pneumonia or pulmonary edema. It has progressed since the most recent study from 09/08/2024. No significant pleural effusion. Cardiomegaly is present. Atherosclerotic calcifications are present in the aorta. The bones are unremarkable. A left subclavian ICD is present with the leads in expected location. Median sternotomy fixation hardware is present. EKG leads are noted. IMPRESSION: 1. Basilar predominant pulmonary edema or interstitial pneumonia 2. Cardiomegaly THIS IS AN ELECTRONICALLY VERIFIED FINAL REPORT 09/15/2024 2:27 PM - Electronically signed by Freddy Nieves MD
[2024-09-15] MEDS: ZITHROMAX INJ 500 MG VIAL 500 MG in NS 250 ML IV 250 ML IV SCH (15:32)
--- NOTE | 2024-09-15 19:53 | EKG ---
Test Reason : DYSPNEA Blood Pressure : */* mmHG Vent. Rate : 110 BPM Atrial Rate : 110 BPM P-R Int : 164 ms QRS Dur : 146 ms QT Int : 362 ms P-R-T Axes : 0 -63 78 degrees QTc Int : 489 ms Sinus tachycardia Left axis deviation Nonspecific intraventricular block Minimal voltage criteria for LVH, may be normal variant ( [place] product ) Inferior infarct (cited on or before 15-SEP-2024) Abnormal ECG When compared with ECG of 15-SEP-2024 13:59, QRS duration has increased Confirmed by Raymond Renae MD ([id number]) on 09/16/2024 5:48:44 AM Referred By: Confirmed By: Raymond Renae MD
[2024-09-15] MEDS: DUONEB 0.5 MG/3 MG (3 mL) NEB PRN (20:12)
[2024-09-15] MEDS: PULMICORT NEB TX 0.5 MG NEB SCH (20:12)
[2024-09-15] MEDS: LIPITOR TAB 80 MG PO SCH (20:25)
[2024-09-15] MEDS: AMARYL TAB 4 MG PO SCH (20:25)
[2024-09-15] MEDS: GLUCOPHAGE XR 24-HR PO SCH (20:26)
[2024-09-15] MEDS: LASIX PO SCH (20:27)
[2024-09-15] MEDS: NovoLIN R (or HumuLIN R) SUBCUT PRN (20:28)
[2024-09-15] MEDS: GALANTAMINE 8 MG PO SCH (20:31)
[2024-09-15] MEDS: SNACK - Diabetic Appropriate PO SCH (20:31)
[2024-09-15] MEDS: ROBITUSSIN DM PO PRN (20:43)
[2024-09-15] MEDS: LOVENOX INJ 80 MG SYR SC SCH (21:33)
[2024-09-15] MEDS: NITRO-BID OINT 2% Multi-Dose tube TD ONE (21:39)
[2024-09-15 21:40] LABS: CREATININE 2.19 mg/dL (0.70-1.30); eGFR NON BLACK RACES 31 (>60)
[2024-09-15 21:42] LABS: COR NA(FOR HYPERGLY) 144 mmol/L (136-145)
--- NOTE | 2024-09-16 00:27 | EKG ---
Test Reason : tropin high Blood Pressure : */* mmHG Vent. Rate : 103 BPM Atrial Rate : 103 BPM P-R Int : 158 ms QRS Dur : 152 ms QT Int : 380 ms P-R-T Axes : 35 -18 86 degrees QTc Int : 497 ms Sinus tachycardia Nonspecific intraventricular conduction delay Abnormal ECG When compared with ECG of 15-SEP-2024 19:52, (Unconfirmed) Criteria for Inferior infarct are no longer present Confirmed by Raymond Renae MD ([id number]) on 09/16/2024 5:48:00 AM Referred By: Confirmed By: Raymond Renae MD
[2024-09-16 03:58] VITALS: RESP 18
[2024-09-16 06:43] LABS: MEAN PLATELET VOLUME 8.4 fL (7.4-11.0); RED CELL DISTRIBUTION WIDTH 14.8 % (11.6-16.5)
[2024-09-16 07:13] LABS: CHOL/HDL RATIO 2.1 (0.0-5.0); COR NA(FOR HYPERGLY) 140 mmol/L (136-145); CREATININE 1.77 mg/dL (0.70-1.30); eGFR NON BLACK RACES 40 (>60)
[2024-09-16] MEDS: PULMICORT NEB TX 0.5 MG NEB ONE (07:15)
[2024-09-16] MEDS ORDERED: PLAVIX PO SCH (09:00)
[2024-09-16] MEDS ORDERED: FLOMAX PO SCH (09:00)
[2024-09-16] MEDS ORDERED: ASPIRIN 81 MG CHEWTAB PO SCH (09:00)
[2024-09-16 09:05] VITALS: BP 103/58; PULSE 100; TEMP 97.5; O2SAT 97
[2024-09-16] MEDS ORDERED: PHARMACY CONSULT XX SCH (10:00)
--- NOTE | 2024-09-17 06:03 | RAD ---
EXAM: CHEST, 1 VIEW HISTORY: CHF EXACERBATION ; CHF, COPD, CAD, CVA, DM, HTN, NC, AAA SX: ANGIO/STENTS, CABG/VALVE SURG, PACEMAKER/DEFIBRILLATOR COMPARISON: 09/15/2024 TECHNIQUE: AP portable FINDINGS: Stable prominent cardiac silhouette. Left-sided ICD/pacer leads. Median sternotomy wires and prior CABG. Pulmonary vascular engorgement with increased hazy airspace opacities. Layering right pleural effusion extends into the right minor fissure. No visible pneumothorax. IMPRESSION: Increased pulmonary edema and right pleural effusion. THIS IS AN ELECTRONICALLY VERIFIED FINAL REPORT 09/17/2024 5:59 AM - Electronically signed by Kailash Fuentes MD
--- NOTE | 2024-09-20 10:28 | DR.SSS ---
SHORT STAY SUMMARY Admission Date Date of Admission: 09/15/24 Discharge Date Discharge Date: 09/16/24 Admission Diagnoses Admission Diagnoses: Acute on chronic respiratory failure CHF exacerbation COPD exacerbation CAD Discharge Diagnoses Discharge Diagnoses: NSTEMI CHF exacerbation COPD exacerbation CAD HTN Chief Complaint Chief Complaint: dyspnea History of Present Illness History of Present Illness: Patient is a 79-year-old male with a past medical history of CAD, CABG, recent PCI, CVA, depression, hypertension, hyperlipidemia and type 2 diabetes who presented with worsening shortness of breath. ER workup showed elevated BNP, chest x-ray showed pulmonary edema vs pneumonia. His magnesium was 0.8. Family had also stated that it was getting harder to take care of him at home and they would prefer him to be placed in a nursing facility. Patient's initial troponin was slightly elevated but the next 2 sets were negative. He was admitted for COPD/CHF exacerbation. He was given IV Lasix and started on antibiotics. Patient denied having any chest pain or worsening shortness of breath. He was admitted for further management. Past Medical History Past Medical History: CHF, COPD, Coronary Artery Disease, CVA, Depression, Diabetes, Dyslipidemia, Hypertension and NC Past Surgical History Surgical History: Angioplasty/Stents, CABG/Valve Surgery and Cholecystectomy Allergies Allergies Allergy/AdvReac Type Severity Reaction Status Date / Time No Known Drug Allergies Allergy Unknown Verified 09/08/24 13:50 Medications Home Medications: No Known Drug Allergies Allergy (Unknown, Verified 09/08/24 13:50) CONTINUE taking the following medications atorvastatin 80 mg tablet 80 mg PO HS 09/15/24 [History] glimepiride 4 mg tablet 2 mg PO BID 09/15/24 [History] Family History Family Medical History: Diabetes Mellitus, Cancer, NC, Coronary Artery Disease, Heart Failure and Hypertension Social History Does patient currently use any type of tobacco product: No Have you used tobacco products in the last 12 months: No Type of Tobacco Use: None Does any household member use tobacco: No Alcohol Use: None Review of Systems Constitutional: Weakness Eyes: No Symptoms Reported ENT: No Symptoms Reported Respiratory: Shortness of Breath Cardiovascular: No Symptoms Reported Gastrointestinal: No Symptoms Reported Genitourinary: No Symptoms Reported Musculoskeletal: No Symptoms Reported Neurological: No Symptoms Reported Physical Exam Vital Signs: Last Vital Signs Temp 97.5 F L 09/16/24 08:00 Pulse 100 H 09/16/24 08:00 Resp 18 09/16/24 08:00 BP 103/58 09/16/24 08:00 Pulse Ox 97 09/16/24 08:00 O2 Del Method Room Air 09/16/24 08:00 Oriented: Normal Throat: Normal Respiratory: Diminished Throughout and Rales Throughout Cardiovascular: Normal Auscultation: Bowel Sounds: Normal Tenderness: Normal Skin: Decreased [place] Musculoskeletal: Normal Psychiatric: Normal Affect: Normal Labs Labs: Laboratory Last Values WBC 9.9 X10^3/uL (3.6-10.0) 09/16/24 06:35 RBC 3.53 X10^6/uL (4.7-6.0) L 09/16/24 06:35 Hgb 10.8 g/dL (13.5-18.0) L D 09/16/24 06:35 Hct 31.8 % (42.0-54.0) L 09/16/24 06:35 MCV 90.2 fL (80.0-100.0) 09/16/24 06:35 MCH 30.6 pg (27.0-34.0) 09/16/24 06:35 MCHC 34.0 g/dL (33.0-35.0) 09/16/24 06:35 RDW 14.8 % (11.6-16.5) 09/16/24 06:35 Plt Count 198 X10^3/uL (150.0-450.0) 09/16/24 06:35 MPV 8.4 fL (7.4-11.0) 09/16/24 06:35 Neut % (Auto) 76.9 % (42.0-75.0) H 09/16/24 06:35 Lymph % (Auto) 13.1 % (21.0-51.0) L 09/16/24 06:35 [place] % (Auto) 9.1 % (0.0-13.0) 09/16/24 06:35 Eos % (Auto) 0.7 % (0.9-2.9) L 09/16/24 06:35 Baso % (Auto) 0.2 % (0.2-1.0) 09/16/24 06:35 Neut # (Auto) 7.6 x10^3/uL (2.2-4.8) H 09/16/24 06:35 Lymph # (Auto) 1.3 X10^3/uL (1.3-2.9) 09/16/24 06:35 [place] # (Auto) 0.9 x10^3/uL (0.3-0.8) H 09/16/24 06:35 Eos # (Auto) 0.1 x10^3/uL (0.0-0.2) 09/16/24 06:35 Baso # (Auto) 0.0 X10^3/uL (0.0-0.1) 09/16/24 06:35 Absolute Nucleated RBC 0.0 /100WBC 09/16/24 06:35 PT 14.7 SECONDS (11.8-14.3) 09/15/24 08:23 INR Target Range - 09/15/24 08:23 INR 1.14 (0.8-1.3) 09/15/24 08:23 APTT 29.4 SECONDS (22.9-36.5) 09/15/24 08:23 PTT Comment - 09/15/24 08:23 Sodium 137 mmol/L (136-145) 09/16/24 06:35 Corrected Sodium 140 mmol/L (136-145) 09/16/24 06:35 Potassium 4.1 mmol/L (3.5-5.1) 09/16/24 06:35 Chloride 102 mmol/L (98-107) 09/16/24 06:35 Carbon Dioxide 27.1 mmol/L (21-32) 09/16/24 06:35 BUN 40 mg/dL (7-18) H 09/16/24 06:35 Creatinine 1.77 mg/dL (0.70-1.30) H 09/16/24 06:35 Est GFR (MDRD) Af Amer 48 (>60) L 09/16/24 06:35 Est GFR (MDRD) Non-Af 40 (>60) L 09/16/24 06:35 Glucose 241 mg/dL (65-99) H 09/16/24 06:35 POC Glucose (mg/dL) 278 mg/dL (65-99) H 09/16/24 04:56 Calcium 8.5 mg/dL (8.5-10.1) 09/16/24 06:35 Corrected Calcium TNP 09/16/24 06:35 Magnesium 1.5 mg/dL (2.0-2.9) L 09/16/24 06:35 Total Bilirubin 0.50 mg/dL (0.2-1.0) 09/16/24 06:35 AST 30 Units/L (15-37) 09/16/24 06:35 ALT 28 Units/L (12-78) 09/16/24 06:35 Alkaline Phosphatase 91 Units/L (46-116) 09/16/24 06:35 Creatine Kinase 42 Units/L (39-308) 09/15/24 12:26 Troponin I High Sens 8102.2 ng/L (4.0-60.0) H* 09/16/24 06:35 B-Natriuretic Peptide 958 pg/mL (0-79) H 09/15/24 08:23 Total Protein 7.7 g/dL (6.4-8.2) 09/16/24 06:35 Albumin 3.4 g/dL (3.4-5.0) 09/16/24 06:35 Globulin 4.3 g/dL (2.5-4.5) 09/16/24 06:35 Albumin/Globulin Ratio 0.8 Ratio (1.1-2.1) L 09/16/24 06:35 Triglycerides 37 mg/dL (0-150) 09/16/24 06:35 Cholesterol 79 mg/dL (0-200) 09/16/24 06:35 LDL Cholesterol, Calc 34 mg/dL (0-100) 09/16/24 06:35 HDL Cholesterol 38 mg/dL (40-60) L 09/16/24 06:35 Cholesterol/HDL Ratio 2.1 (0.0-5.0) 09/16/24 06:35 Specimen Type Clean catch urine 09/15/24 09:39 Urine Color Yellow (YELLOW) 09/15/24 09:39 Urine Appearance Clear (CLEAR) 09/15/24 09:39 Urine pH 5.0 (5.0 - 8.0) 09/15/24 09:39 Ur Specific [place] 1.020 (1.000-1.030) 09/15/24 09:39 Urine Protein 2+ (NEGATIVE) 09/15/24 09:39 Urine Glucose (UA) Negative (NEGATIVE) 09/15/24 09:39 Urine Ketones Negative (NEGATIVE) 09/15/24 09:39 Urine Blood 1+ (NEGATIVE) 09/15/24 09:39 Urine Nitrite Negative (NEGATIVE) 09/15/24 09:39 Urine Bilirubin Negative (NEGATIVE) 09/15/24 09:39 Urine Urobilinogen Normal (NORMAL) 09/15/24 09:39 Ur Leukocyte Esterase Negative (NEGATIVE) 09/15/24 09:39 Urine RBC 0-2 /HPF (0-3) 09/15/24 09:39 Urine WBC None seen /HPF (0-5) 09/15/24 09:39 Ur Squamous Epith Cells Rare /HPF (NEGATIVE) 09/15/24 09:39 Urine Bacteria Negative /HPF (NEGATIVE) 09/15/24 09:39 Ur Culture Indicated? No/not indicated 09/15/24 09:39 SARS-CoV-2 (PCR) Negative (NEGATIVE) 09/15/24 09:39 Influenza Type A (PCR) Negative (NEGATIVE) 09/15/24 09:39 Influenza Type B (PCR) Negative (NEGATIVE) 09/15/24 09:39 RSV (PCR) Negative (NEGATIVE) 09/15/24 09:39 Hospital Course Hospital Course: Patient was admitted for CHF/COPD exacerbation. His labs were monitored and electrolytes replaced. He also had low mag on admission, replaced magnesium supplement. His magnesium did improve to 1.5 later that day. He did have further troponins and there were noted to be elevated. His fourth set was in the 400 range with some EKG changes. Dr. Renae was consulted over the phone and recommended starting full dose Lovenox. Patient did not have any chest pain or shortness of breath at the time. He was already on aspirin and statin. Patient's cardiac enzymes trended up overnight with some EKG changes. He recently had stents placed in June in [facility]. Due to patient's extensive cardiac history, it was decided to transfer patient to [place] for further care. Transfer line was contacted and patient was accepted at [facility]. He did not have any worsening chest pain or shortness of breath. His vitals remained stable. He was stable for transfer. Discharge Medications Discharge Medications: Home Medication List atorvastatin 80 mg tablet 80 mg PO HS 09/15/24 [History] glimepiride 4 mg tablet 2 mg PO BID 09/15/24 [History] Prescriptions: Discharge Disposition Discharge Disposition: [place], [place] Discharge Plan Discharge Plan Patient Disposition: 02 XFER SHT-TRM HOSP Condition: Stable Health Concerns: Post Hospitalization: new medications and changes needed to prevent readmission or further decline. Pt educated and given instructions on all concerns. Plan of Treatment: Continue with present treatment and follow up plan. Pt is to keep follow up appointment as instructed and take medications as ordered. Prescriptions: No Action metformin 500 mg tablet extended release 24 hr 1,000 mg PO BID Qty: 360 0RF galantamine 8 mg tablet 8 mg PO BID MDD 2 30 Days Qty: 60 1RF Rx Instructions: administer with AM and PM meals Vraylar 1.5 mg capsule 1.5 mg PO QDAY MDD 1 at supper 30 Days Qty: 30 1RF tamsulosin 0.4 mg capsule 0.4 mg PO DAILY clopidogrel 75 mg tablet 75 mg PO QDAY (DME) Continuous Glucose Monitor Misc See Rx Instructions .Route Qty: 1 0RF Rx Instructions: As directed order 1 Fanminder G7 CGM with appropriate sensors and reader (DME) Ultra-Light Rollator Misc See Rx Instructions .Route Qty: 1 0RF Rx Instructions: As directed (DME) walker Misc See Rx Instructions .Route Qty: 1 0RF Rx Instructions: As directed, heavy-duty rollator with seat loperamide [Imodium A-D] 2 mg tablet 2 mg PO Q6H MDD 3 PRN (Reason: loose stool) 30 Days Qty: 30 0RF ipratropium-albuterol 0.5 mg-3 mg(2.5 mg base)/3 mL Solution For Nebulization 3 ml INHALATION Q4H PRN nitroglycerin 0.4 mg Tablet, Sublingual 0.4 mg SUBLINGUAL Q5-15M PRN Rx Instructions: do not exceed 3 doses per episode aspirin 81 mg Tablet,Chewable 81 mg PO QDAY furosemide 20 mg tablet 20 mg PO BID meclizine 12.5 mg tablet 12.5 mg PO TID PRN (Reason: dizziness) Qty: 30 0RF atorvastatin 80 mg tablet 80 mg PO HS MDD 1 glimepiride 4 mg tablet 2 mg PO BID Rx Instructions: Take 1/2 of a tablet every morning and evening per the patients daughter. Orders to Discharge Patient Discharge Orders: Discharge by Transfer to Outside Facility (Routine); Ordered 09/16/24 Ordered By: Jaclyn Bone Follow ups/Referrals Follow ups/Referrals: [facility],None [Primary Care Provider] - 3 days Instructions Stand Alone Forms: Find Help Web Site Print Language: SERBIAN
== END 2024-09-16 08:45 | disposition short-term general hospital (02) ==
LOC: ER 08:20 → MED/SURG 08:20
PROVIDERS: ADMIT Internal Medicine; ATTEND Internal Medicine
DX: J96.20 Acute and chronic respiratory failure, unspecified whether with hypoxia or hypercapnia; Z86.73 Personal history of transient ischemic attack (TIA), and cerebral infarction without residual deficits; E83.42 Hypomagnesemia; Z74.1 Need for assistance with personal care; J90 Pleural effusion, not elsewhere classified; Z59.19 Other inadequate housing; Z60.5 Target of (perceived) adverse discrimination and persecution; I11.0 Hypertensive heart disease with heart failure; R41.0 Disorientation, unspecified; Z95.2 Presence of prosthetic heart valve; R62.7 Adult failure to thrive; I50.9 Heart failure, unspecified; E78.5 Hyperlipidemia, unspecified; I25.810 Atherosclerosis of coronary artery bypass graft(s) without angina pectoris; J44.1 Chronic obstructive pulmonary disease with (acute) exacerbation; R79.89 Other specified abnormal findings of blood chemistry; R00.0 Tachycardia, unspecified; Z03.818 Encounter for observation for suspected exposure to other biological agents ruled out; R26.89 Other abnormalities of gait and mobility; Z59.89 Other problems related to housing and economic circumstances; Z59.41 Food insecurity; R94.31 Abnormal electrocardiogram [ECG] [EKG]; E11.65 Type 2 diabetes mellitus with hyperglycemia; Z95.0 Presence of cardiac pacemaker; I21.4 Non-ST elevation (NSTEMI) myocardial infarction